=== PATIENT | female | born 1995 | race Caucasian/White ===

== ENCOUNTER 2016-08-07 14:29 | Inpatient (IN) | payer MEDICAID, OTHER ==
[2016-08-07] MEDS ORDERED: ZIPRASIDONE 20 MG VIAL IM PRN (15:06)
[2016-08-07] MEDS ORDERED: MAGNESIUM HYDROXIDE 2,400 MG/10 ML CUP PO PRN (15:06)
[2016-08-07] MEDS ORDERED: MAG HYDROX/AL HYDROX/SIMETH 30 ML CUP PO PRN (15:06)
[2016-08-07] MEDS ORDERED: LORazepam 2 MG/ML SYRINGE IM PRN (15:08)
[2016-08-07] MEDS: LORazepam 1 MG TAB PO PRN (18:05)
[2016-08-07] MEDS: ACETAMINOPHEN TAB 325 MG TAB PO PRN (18:05)
[2016-08-07 18:48] VITALS: BMI 23.7
[2016-08-07] MEDS ORDERED: QUEtiapine 50 MG TAB PO STA (22:04)
[2016-08-08] MEDS: NICOTINE 14MG/24HR PATCH TRANSDERM SCH (08:26)
[2016-08-08] MEDS: ACETAMINOPHEN TAB 325 MG TAB PO PRN ×2 (08:27→15:35)
[2016-08-08] MEDS: LORazepam 1 MG TAB PO PRN ×3 (08:28→23:10)
--- NOTE | 2016-08-08 13:29 | P.HP ---
Psychiatric H&P - . H&P Date: 08/08/16 History & Physical: IDENTIFYING DATA: She is a 21-year-old single female transferred from [facility] where she was admitted following an intentional overdose of an voyd-hmv-guqusle medication. HISTORY OF PRESENT ILLNESS: She is a poor historian and provided little information. She repeated throughout the interview that she is not suicidal, the overdose was a mistake and wishes to go home. She was admitted to [facility] via EMS on 08/04/2016. According to the medical record from [facility] she told the EMS personnel that she was suicidal and that she had overdose with "mucous medication." An alcohol odor was noted by nursing staff on admission. Her urine drug screen was positive for cannabinoids, cocaine, methamphetamine, amphetamine and benzodiazepines. Her ethanol level was 45 MG/DL. Her acetaminophen level was less than 10. Physician noted that she appeared lethargic and poorly responsive with diminished gag reflex. She was admitted to the ICU due to concerns over respiratory depression due to the multiple drug use and overdose of unspecified medications. She stated that she took an overdose of a "mucous medication" because she was distressed over conflict with her parents and her closest friend. She stated that she was arguing with her mother because she been away from home for 2 weeks and her mother was concerned about her use of drugs. She stated she lived with various friends over a two-week period. She was also arguing with her best friend because her best friend was concerned about her use of drugs. She minimizes her drug use alleging that she smoked some pot, used some cocaine, took some ADHD medications and some benzos. She denied that she took methamphetamine. Likewise, she minimized her alcohol use alleging that she drank "some". She denied feelings of depression, hopelessness, helplessness or worthlessness. She denied current suicidal thoughts, ideation or intent. She she regrets the overdose because her action traumatized her mother and her best friend. She denied feeling persistently depressed or having contemplated suicide prior to the overdose. She denied feeling persistently tense, nervous or anxious. She denied persistent irritability or a persistent elevation in mood. She denied psychotic symptoms such as auditory or visual hallucinations, ideas reference, thought insertion, thought broadcasting or thought control. PAST PSYCHIATRIC HISTORY: Her only psychiatric hospitalization was to this unit in July 2014. She presented with acute suicidal ideation with a plan of jumping into [place]. The stressor appears to have been the suicide of a close friend. Her action was purportedly thwarted by a concerned friend. Her discharge diagnoses included major depressive disorder recurrent, generalized anxiety disorder and a possible developmental disability. Her discharge medication included Prozac 20 mg daily and she was [facility] for [facility] mental health treatment. She stated that she meant with a counselor "for a period time" but left counseling "about a year and half ago." She has not received mental health services since she left [facility]. PAST MEDICAL HISTORY: According to record, she has history of asthma.. ALLERGIES: NO KNOWN DRUG ALLERGIES. SUBSTANCE USE HISTORY: She was evasive about the amount and frequency of her substance use. The medical record notes a history of benzodiazepine abuse. She talked about using "some" and "occasional" drugs and alcohol but she denied that this concern or has caused her problems. I suspect that her use of alcohol and drugs is more significant than she presented and is likely the primary precipitant for the reported overdose. FAMILY PSYCHIATRIC/SUBSTANCE USE HISTORY: Reportedly according to record her grandmother's brother by suicide. LEGAL HISTORY: And she is not on probation, parole or has pending charges. According to the [facility] court docket she was charged with assault and battery in June 2016, disorderly person/loitering about illegal business in June 2015, call purchase/consumption/possession by a minor second offense in April 2015. SOCIAL HISTORY: She was born in [place] and raised intact family. She has 2 brothers and 3 sisters. She left school in 11th grade. She did not receive a GED. She was suspended in school for truancy. It appears that she left school because she had difficulty with learning. She is single and has no children. She is unemployed and has no stable income. She is supported by her family. MENTAL STATUS EXAM: She presented as a disheveled 21-year-old female who looked younger than her stated age. She made eye contact and attended to the interview. Her hair was dyed pink. She had no prominent physical abnormalities. She had a blunted facial expression. She was alert and oriented to person, place and time. She showed psychomotor retardation but no abnormal involuntary movements. Her gait was slow but steady. Her speech was spontaneous with decreased rate, rhythm and volume. She had no articulation difficulties. Her affect was blunted but stable and appropriate. She denied suicidal ideation or wishes. She denied homicidal ideation. She denied depressive cognitions such as hopelessness, helplessness or worthlessness. She did not express phobias, ideas of reference, paranoid ideation. She delusional thoughts. Her thinking was concrete but her associations were coherent and logical. She did not demonstrate clang associations, perseveration, neologisms or blocking. She denied hallucinations and did not appear to be responding to internal stimuli. Global impression of intellect is average to below. She has limited awareness of her illness and need for treatment. STRENGTHS: Supportive family, stable housing, supportive friends. WEAKNESSES: Lack of employment, substance use problems, poor problem-solving skills, emotional immaturity IMPRESSION: She is a 21-year-old single female readmitted to the psychiatric unit following a overdose of a "mucous medication" (possibly Mucinex ). The overdose occurred in contacts of abuse of several drugs including marijuana, cocaine, amphetamines, methamphetamine, benzodiazepines and alcohol. She left home 2 weeks prior to overdose and has been arguing with her family over her absence and drug use and with friends over her drug use. She minimizes the severity of her drug and alcohol use and the severity of her suicide attempt. She should be treated on an inpatient basis due to the severity of the overdose. PRINCIPLE DIAGNOSIS: Intentional overdose of Mucinex, cocaine use disorder, methamphetamine use disorder, amphetamine use disorder, benzodiazepines use disorder, cannabinoid use disorder rule out alcohol use disorder, rule out a depressive disorder, possible learning disorder RECOMMENDATION: Continue inpatient psychiatric hospitalization. Obtain collateral information from family and discuss a referral for substance abuse treatment. Monitor for signs and symptoms of withdrawal. Encourage participation in therapeutic groups and activities. Evaluate clinical status response to treatment daily basis. Allergies Allergy/AdvReac Type Severity Reaction Status Date / Time No Known Allergies Allergy Verified 08/07/16 18:00 Vital Signs Temp 97.7 F 08/08/16 06:30 Pulse 71 08/08/16 06:30 Resp 16 08/08/16 06:30 BP 89/55 08/08/16 06:30 Pulse Ox 95 08/07/16 18:12 Intake & Output 08/07/16 08/08/16 08/08/16 18:59 06:59 18:59 Weight 58.8 kg 08/08/16 07:49 08/08/16 10:05 08/08/16 13:22
[2016-08-08] MEDS: METOPROLOL TARTRATE 25 MG TAB PO SCH (21:33)
--- NOTE | 2016-08-08 22:33 | P.HPIM ---
History of Present Illness H&P Date: 08/08/16 Chief Complaint: Suicide/depression. This is a history and physical an 21-year-old white female who was transferred from [facility] secondary to multiple drug overdose with legal and illegal substances including cocaine. She was medically stabilized over the weekend and because of her admitted suicide and history of depression and psychosocial stress, she was transferred to mental health unit yesterday. She states significant pressure/. Pressure and lack of support from her "friends." Her mother has tried to separate her from this clinic of people. However, over the last several weeks she's had struggles and ended up using illicit substances. She states she hopes that she improves her mental state. Review of Systems Constitutional: Denies chills, Denies fever Ears, nose, mouth and throat: Denies headache, Denies sore throat Respiratory: Denies cough Gastrointestinal: Reports as per HPI Psychiatric: Reports hopelessness, Reports mood swings, Reports sadness/ tearfulness Past Medical History Past Medical History: Asthma Additional Past Medical History / Comment(s): head injury -2013 History of Any Multi-Drug Resistant Organisms: None Reported Past Surgical History: No Surgical Hx Reported Past Anesthesia/Blood Transfusion Reactions: No Reported Reaction Past Psychological History: Anxiety, Bipolar, Depression, Panic Disorder Smoking Status: Current every day smoker Past Alcohol Use History: None Reported Past Drug Use History: Marijuana - Past Family History Mother Family Medical History: GERD/Reflux Medications and Allergies Home Medications Medication Instructions Recorded Confirmed Type Albuterol Inhaler [Ventolin Hfa 2 puff INHALATION RT-Q4H PRN 08/07/16 08/07/16 History Inhaler] Allergies Allergy/AdvReac Type Severity Reaction Status Date / Time No Known Allergies Allergy Verified 08/07/16 18:00 Physical Exam Vitals: Vital Signs Temp Pulse Resp BP Pulse Ox 08/08/16 06:30 97.7 F 71 16 89/55 08/07/16 18:12 98.3 F 90 18 112/61 95 Intake and Output 08/07/16 08/08/16 08/08/16 22:59 06:59 14:59 Other: Weight 58.8 kg - Constitutional General appearance: no acute distress - EENT Eyes: EOMI - Neck Neck: no lymphadenopathy - Respiratory Respiratory: bilateral: CTA - Cardiovascular Rhythm: regular Heart sounds: normal: S1, S2 - Gastrointestinal General gastrointestinal: soft - Neurologic Neurologic: CNII-XII intact, focal deficits Thrombosis Risk Factor Assmnt - Choose All That Apply Any of the Below Risk Factors Present?: Yes Other Risk Factors: No Assessment and Plan (1) Suicidal ideation Status: Acute Plan: Continue psychotherapy one-on-one and group therapy. Asthma is stable at this time. If worsening breathing, consider nebulized treatments. We'll continue to follow as necessary.
[2016-08-09 06:31] VITALS: TEMP 97.5
[2016-08-09 08:26] VITALS: RESP 16
[2016-08-09] MEDS: NICOTINE 14MG/24HR PATCH TRANSDERM SCH (10:01)
[2016-08-09] MEDS: METOPROLOL TARTRATE 25 MG TAB PO SCH ×2 (10:01→12:20)
--- NOTE | 2016-08-09 11:37 | P.DS ---
Providers Date of admission: 08/07/16 16:48 Attending physician: Wisam Pastor MD Consults: 08/07/16 15:06 Consult Physician Routine Consulting Provider: Gabriel Pizano Consult Reason/Comments: follow up H & P Do you want consulting provider notified?: Yes Primary care physician: Gabriel Pizano - Discharge Diagnosis(es) (1) Suicide attempt by substance overdose Current Visit: Yes Status: Acute Priority: Medium (2) Methamphetamine use disorder, mild Current Visit: Yes Status: Chronic Priority: Medium (3) Amphetamine use disorder, moderate Current Visit: Yes Status: Chronic Priority: Medium (4) Moderate benzodiazepine use disorder Current Visit: Yes Status: Chronic Priority: Medium (5) Cannabis use disorder, mild, abuse Current Visit: Yes Status: Chronic Priority: Medium (6) Adjustment disorder with mixed disturbance of emotions and conduct Current Visit: Yes Status: Resolved Priority: High Hospital Course: She is a 21-year-old single female transferred from [facility] where she was admitted following an intentional overdose of an eoii-joa-cxmtebh medication. She is a poor historian and provided little information. She repeated throughout the interview that she is not suicidal, the overdose was a mistake and wishes to go home. She was admitted to [facility] via EMS on 08/04/2016. According to the medical record from [facility] she told the EMS personnel that she was suicidal and that she had overdose with "mucous medication." An alcohol odor was noted by nursing staff on admission. Her urine drug screen was positive for cannabinoids, cocaine, methamphetamine, amphetamine and benzodiazepines. Her ethanol level was 45 MG/DL. Her acetaminophen level was less than 10. Physician noted that she appeared lethargic and poorly responsive with diminished gag reflex. She was admitted to the ICU due to concerns over respiratory depression due to the multiple drug use and overdose of unspecified medications. She stated that she took an overdose of a "mucous medication" because she was distressed over conflict with her parents and her closest friend. She stated that she was arguing with her mother because she been away from home for 2 weeks and her mother was concerned about her use of drugs. She stated she lived with various friends over a two-week period. She was also arguing with her best friend because her best friend was concerned about her use of drugs. She minimizes her drug use alleging that she smoked some pot, used some cocaine, took some ADHD medications and some benzos. She denied that she took methamphetamine. Likewise, she minimized her alcohol use alleging that she drank "some". She denied feelings of depression, hopelessness, helplessness or worthlessness. She denied current suicidal thoughts, ideation or intent. She she regrets the overdose because her action traumatized her mother and her best friend. She denied feeling persistently depressed or having contemplated suicide prior to the overdose. She denied feeling persistently tense, nervous or anxious. She denied persistent irritability or a persistent elevation in mood. She denied psychotic symptoms such as auditory or visual hallucinations, ideas reference, thought insertion, thought broadcasting or thought control. Her only psychiatric hospitalization was to this unit in July 2014. She presented with acute suicidal ideation with a plan of jumping into [facility]. The stressor appears to have been the suicide of a close friend. Her action was purportedly thwarted by a concerned friend. Her discharge diagnoses included major depressive disorder recurrent, generalized anxiety disorder and a possible developmental disability. Her discharge medication included Prozac 20 mg daily and she was referred to [facility] for continued mental health treatment. She stated that she meant with a counselor "for a period time" but left counseling "about a year and half ago." She has not received mental health services since she left [facility]. She was evasive about the amount and frequency of her substance use. The medical record notes a history of benzodiazepine abuse. She talked about using "some" and "occasional" drugs and alcohol but she denied that this concern or has caused her problems. I suspect that her use of alcohol and drugs is more significant than she presented and is likely the primary precipitant for the reported overdose. We admitted her to the psychiatric unit under the care of this pattern chart writer. We provided a biopsychosocial assessment. The medical social consultant completed initial physical exam and medical history and diagnosed asthma. She took the overdose because she was "hanging with the wrong crowd" and using drugs. She complained that these friends were critical and demeaning towards her. After speaking with her mother she decided to have no further contact with them. She denied suicidal ideation or wishes. She regrets the overdose because she understands the trauma and distress she caused her family and her friends. She declined recommendation for referral to a substance abuse treatment program. However, she agreed to referral to [facility] for continued mental health and/or substance abuse treatment. There were no indications during this brief hospitalization for the prescription of psychotropic medication. At time of discharge she denied feeling depressed or having thoughts of or suicide. She denied psychotic symptoms. Her affect was bright and her thinking was organized, coherent and goal directed. Patient Condition at Discharge: Stable Plan - Discharge Summary New Discharge Prescriptions: Metoprolol Tartrate [Lopressor] 25 mg PO DAILY #30 tab Nicotine 14Mg/24Hr Patch [Habitrol] 1 patch TRANSDERM DAILY #14 patch Discharge Medication List Albuterol Inhaler [Ventolin Hfa Inhaler] 2 puff INHALATION RT-Q4H PRN 08/07/16 [ History] Metoprolol Tartrate [Lopressor] 25 mg PO DAILY #30 tab 08/09/16 [Rx] Nicotine 14Mg/24Hr Patch [Habitrol] 1 patch TRANSDERM DAILY #14 patch 08/09/16 [ Rx] Discharge Disposition: HOME SELF-CARE
[2016-08-09 12:12] VITALS: BP 117/75; PULSE 97
[2016-08-09] MEDS: LORazepam 1 MG TAB PO PRN (12:20)
== END 2016-08-09 13:00 | disposition home or self-care (01) | DRG 897 ==
LOC: 3MHU 16:48
PROVIDERS: ADMIT Psychiatry & Neurology Psychiatry; ATTEND Psychiatry & Neurology Psychiatry
DX: F15.20 Other stimulant dependence, uncomplicated (principal); F14.90 Cocaine use, unspecified, uncomplicated; F12.90 Cannabis use, unspecified, uncomplicated; F43.25 Adjustment disorder with mixed disturbance of emotions and conduct; J45.909 Unspecified asthma, uncomplicated; F90.9 Attention-deficit hyperactivity disorder, unspecified type; F17.200 Nicotine dependence, unspecified, uncomplicated; F41.0 Panic disorder [episodic paroxysmal anxiety]; F19.90 Other psychoactive substance use, unspecified, uncomplicated; Z72.89 Other problems related to lifestyle; Z91.5 Personal history of self-harm; Z79.899 Other long term (current) drug therapy
CPT/HCPCS: 84443; 93005

== ENCOUNTER → 2017-04-05 | Outpatient (CLI) | payer OTHER ==
[2017-04-05 13:50] LABS: CH 32.7; CHCM 35.8; HCT 39.6 % (34.0-46.0); HDW 2.66; MCH 32.3 pg (25.0-35.0); MCHC 35.2 g/dL (31.0-37.0); MCV 91.8 fL (80.0-100.0); Mean Platelet Volume 7.3; RBC 4.32 m/uL (3.80-5.40); RDW 12.2 % (11.5-15.5)
--- NOTE | 2017-04-05 14:14 | US ---
EXAMINATION TYPE: US OB <= 14 wk fetus DATE OF EXAM: 04/05/2017 COMPARISON: NONE CLINICAL HISTORY: Z36 Confirm dates. early OB, cramping EXAM PERFORMED: TA EXAM MEASUREMENTS: GESTATIONAL AGE / DATING Physician Established: (10 weeks/4 days) EDC: 10/28/2017 Dates by LMP: (10 weeks/4 days) EDC: 10/28/2017 Dates by First Scan: No previous this is first scan Dates by Current Scan for: (9 weeks/2 days) EDC: 11/06/2017 MATERNAL ANATOMY Uterus: 9.9 x 8.2 x 7.2cm Right Ovary: 2.7 x 1.6 x 1.3cm Left Ovary: 2.7 x 2.0 x 1.8cm Post CDS / Adnexa: wnl Presence of free fluid: no Presence of corpus luteal cyst: not seen Presence of subchorionic bleed: no GESTATION / SURVEY CRL: 2.6 (9 weeks/2 days) MSD: wnl Yolk Sac (normal less than 6mm): 0.3cm Heart Rate: 173 bpm Rhythm: Normal IUP: Viable IUP Date of LMP: 01/21/2017 Beta HcG (if available): pending IMPRESSION: 1. Single intrauterine gestation estimated at 9 weeks 2 days gestation based on current ultrasound me asurements. This would have a calculated EDC of 11/06/2017 based on the current ultrasound measurement s. Correlate this with her physician established EDC. 2. Cardiac activity measures 173 bpm.
[2017-04-05 14:23] LABS: Glucose 66 mg/dL (74-99); Non-African American GFR(MDRD) >60 (>60 ml/min/1.73 sqM)
[2017-04-05 19:51] LABS: Treponemal Ab Non-Reactive (Non-Reactive)
== END ==
LOC: RADUSWWP 12:18
PROVIDERS: ATTEND Obstetrics & Gynecology
DX: Z36.9 Encounter for antenatal screening, unspecified (principal); O26.811 Pregnancy related exhaustion and fatigue, first trimester; Z3A.09 9 weeks gestation of pregnancy
CPT/HCPCS: 36415; 76801; 82565; 82947; 85027; 86762; 86777; 86778; 86780; 86850; 86900; 86901; 87340; 87390

== ENCOUNTER 2017-08-18 19:34 | Emergency (ER) | payer OTHER ==
[2017-08-18] MEDS ORDERED: PENICILLIN V POTASSIUM 250 MG TAB PO STA (20:18)
[2017-08-18 20:20] VITALS: BP 127/79; PULSE 121; RESP 17; TEMP 98.5
--- NOTE | 2017-08-18 20:25 | ED ---
ENT HPI - General Chief complaint: Dental/Oral Stated complaint: Dental pain Time Seen by Provider: 08/18/17 19:50 Source: patient, RN notes reviewed Mode of arrival: ambulatory Limitations: no limitations - History of Present Illness Initial comments: This is a 22-year-old female who presents to the emergency department with chief complaint of toothache. Patient states that she fractured her right upper wisdom tooth a few months ago and has been experiencing pain for the last couple of weeks. She states she has been applying Orajel. Patient does admit to being in her third trimester of . Denies any drainage from the tooth. Denies any radiation of pain to the jaw or neck. Denies fevers or chills, chest pain shortness of breath, abdominal pain, nausea or vomiting. She does admit to constipation. - Related Data Home Medications Medication Instructions Recorded Confirmed Albuterol Inhaler [Ventolin Hfa 2 puff INHALATION RT-Q4H PRN 08/07/16 08/07/16 Inhaler] Previous Rx's Medication Instructions Recorded Metoprolol Tartrate [Lopressor] 25 mg PO DAILY #30 tab 08/09/16 Nicotine 14Mg/24Hr Patch [Habitrol] 1 patch TRANSDERM DAILY #14 patch 08/09/16 Penicillin V Potassium [Pen Vee K] 500 mg PO QID 10 Days tab 08/18/17 Allergies Allergy/AdvReac Type Severity Reaction Status Date / Time No Known Allergies Allergy Verified 08/18/17 19:49 Review of Systems ROS Statement: Those systems with pertinent positive or pertinent negative responses have been documented in the HPI. ROS Other: All systems not noted in ROS Statement are negative. Past Medical History Past Medical History: Asthma Additional Past Medical History / Comment(s): head injury -2014 History of Any Multi-Drug Resistant Organisms: None Reported Past Surgical History: No Surgical Hx Reported Past Anesthesia/Blood Transfusion Reactions: No Reported Reaction Past Psychological History: Anxiety, Bipolar, Depression, Panic Disorder Smoking Status: Current every day smoker Past Alcohol Use History: None Reported Past Drug Use History: Marijuana - Past Family History Mother Family Medical History: GERD/Reflux General Exam - General Exam Comments Initial Comments: General: Awake and alert, well-developed; in no apparent distress. HEENT: Head atraumatic, normocephalic. Pupils are equal, round and reactive to light. Extraocular movements intact. Oropharynx moist without erythema or exudate. Tooth #1 is fractured. No masses or areas of fluctuance noted on palpation of the gumline. No active drainage. Neck: Supple. Normal ROM. Cardiovascular: Regular rate and rhythm. No murmurs, rubs or gallops. Chest symmetrical. Respiratory: Lungs clear to auscultation bilaterally. No wheezes, rales or rhonchi. Normal respiratory effort with no use of accessory muscles. Musculoskeletal: Normal ROM, no tenderness bilateral upper and lower extremities. Ambulating normally. Skin: Earth, warm and dry without rashes or lesions. Neurological: Alert and oriented x3. CN II-XII grossly intact. Speech is fluent and answers are appropriate. No focal neuro deficits. Psychiatric: Normal mood and affect. No overt signs of depression or anxiety noted. Limitations: no limitations Course Vital Signs 08/18/17 19:46 Temperature 98.8 F Pulse Rate 132 H Respiratory 20 Rate Blood Pressure 124/76 O2 Sat by Pulse 96 Oximetry Medical Decision Making - Medical Decision Making This is a 22-year-old female who presents to the emergency department with chief complaint of toothache. Patient has a fractured right upper wisdom tooth with no abscesses noted on examination. On presentation, patient's vital signs are stable however she does have an increased heart rate. Patient states that she always has an increased heart rate as she is an anxious person and this is not out of the ordinary for her. Initially heart rate was 132, however on recheck it was down to 118. Patient denies any other symptoms except for tooth pain and constipation. No fevers or chills, shortness breath or chest pain, abdominal pain, nausea or vomiting, vaginal bleeding. Recommended increasing her fluid intake. This case was discussed with attending physician, Dr. Higginbotham. Patient will be started on penicillin VK. Also recommended following up with her dentist. Patient is in no acute distress and will be discharged home at this time. She is in agreement with plan and voices understanding. All questions were answered. Disposition Clinical Impression: Toothache Disposition: HOME SELF-CARE Condition: Good Instructions: Toothache (ED) Additional Instructions: Please take medications as prescribed. Please follow up with your dentist. Please follow up with primary care provider within 1-2 days. Return to emergency department if symptoms should worsen or any concerns arise. Prescriptions: Penicillin V Potassium [Pen Vee K] 500 mg PO QID 10 Days tab Is patient prescribed a controlled substance at d/c from ED?: No Referrals: Gabriel Pizano MD [Primary Care Provider] - 1-2 days Time of Disposition: 20:24
== END 2017-08-18 20:43 | disposition home or self-care (01) ==
LOC: EC 19:34
DX: O99.613 Diseases of the digestive system complicating pregnancy, third trimester (principal); K08.89 Other specified disorders of teeth and supporting structures; K59.00 Constipation, unspecified; O99.513 Diseases of the respiratory system complicating pregnancy, third trimester; J45.909 Unspecified asthma, uncomplicated; O99.343 Other mental disorders complicating pregnancy, third trimester; F41.9 Anxiety disorder, unspecified; O99.333 Smoking (tobacco) complicating pregnancy, third trimester; F17.200 Nicotine dependence, unspecified, uncomplicated; Z3A.00 Weeks of gestation of pregnancy not specified
CPT/HCPCS: 99282

== ENCOUNTER 2018-02-05 00:03 | Emergency (ER) | payer OTHER ==
[2018-02-05 00:08] VITALS: TEMP 98.6
[2018-02-05] MEDS ORDERED: SODIUM CHLORIDE 0.9% 1,000 ML IV STA ×2 (00:32)
--- NOTE | 2018-02-05 00:35 | ED ---
Chest Pain HPI - General Source: patient, RN notes reviewed, old records reviewed Mode of arrival: ambulatory Limitations: no limitations <Marina Moura - Last Filed: 02/05/18 02:30> <Shabana Cook - Last Filed: 02/05/18 04:23> - General Chief Complaint: Chest Pain Stated Complaint: Chest Pain Time Seen by Provider: 02/05/18 00:13 - History of Present Illness Initial Comments: Patient is a 23-year-old female who presents emergency department today with chief complaint of chest pain intermittent shortness of breath for the past week. She reports she's had history of tachycardia, was previously on metoprolol per her PCP. She reports she's not been taking this medication for quite some time. Patient states she feels like her heart is racing. She states she has had no nausea or vomiting or abdominal pain. She reports occasional headache. Patient states that she has never seen a oncology social work in the past. She reports a family history of blood disorders. No previous history of blood clots for herself. She denies any back or her rib pain. She reports that her chest pain feels like a squeezing sensation around her heart. Patient denies any recent fever, chills, shortness of breath, back pain, abdominal pain, nausea vomiting, numbness or tingling, dysuria or hematuria, constipation or diarrhea, headaches or visual changes, or any other current symptoms (Marina Moura) - Related Data Home Medications Medication Instructions Recorded Confirmed Albuterol Inhaler [Ventolin Hfa 2 puff INHALATION RT-Q4H PRN 08/07/16 08/07/16 Inhaler] Previous Rx's Medication Instructions Recorded Metoprolol Tartrate [Lopressor] 25 mg PO DAILY #30 tab 08/09/16 Nicotine 14Mg/24Hr Patch [Habitrol] 1 patch TRANSDERM DAILY #14 patch 08/09/16 Penicillin V Potassium [Pen Vee K] 500 mg PO QID 10 Days tab 08/18/17 Famotidine [Pepcid] 20 mg PO BID #20 tablet 02/05/18 Allergies Allergy/AdvReac Type Severity Reaction Status Date / Time No Known Allergies Allergy Verified 02/05/18 00:07 Review of Systems ROS Other: All systems not noted in ROS Statement are negative. <Marina Moura - Last Filed: 02/05/18 02:30> ROS Other: All systems not noted in ROS Statement are negative. <Shabana Cook Brandee - Last Filed: 02/05/18 04:23> ROS Statement: Those systems with pertinent positive or pertinent negative responses have been documented in the HPI. EKG Findings - EKG Comments: EKG Findings:: EKG performed at 0 15 shows sinus tachycardia, regular rate of 112 bpm. OH interval is 164 ms. QRS duration 82 ms. QT QTc is 328/447 ms. <Marina Moura - Last Filed: 02/05/18 02:30> Past Medical History Past Medical History: Asthma Additional Past Medical History / Comment(s): head injury -2013 History of Any Multi-Drug Resistant Organisms: None Reported Past Surgical History: No Surgical Hx Reported Past Anesthesia/Blood Transfusion Reactions: No Reported Reaction Past Psychological History: Anxiety, Bipolar, Depression, Panic Disorder Smoking Status: Current every day smoker Past Alcohol Use History: Occasional Past Drug Use History: Marijuana - Past Family History Mother Family Medical History: GERD/Reflux <Marina Moura - Last Filed: 02/05/18 02:30> General Exam Limitations: no limitations General appearance: alert, in no apparent distress Head exam: Present: atraumatic, normocephalic, normal inspection Eye exam: Present: normal appearance, PERRL, EOMI. Absent: scleral icterus, conjunctival injection, periorbital swelling ENT exam: Present: normal exam, mucous membranes moist Neck exam: Present: normal inspection. Absent: tenderness, meningismus, lymphadenopathy Respiratory exam: Present: normal lung sounds bilaterally. Absent: respiratory distress, wheezes, rales, rhonchi, stridor Cardiovascular Exam: Present: regular rate, normal rhythm, normal heart sounds. Absent: systolic murmur, diastolic murmur, rubs, gallop, clicks GI/Abdominal exam: Present: soft, normal bowel sounds. Absent: distended, guarding, rebound, rigid Extremities exam: Present: normal inspection, full ROM, normal capillary refill. Absent: tenderness, pedal edema, joint swelling, calf tenderness Back exam: Present: normal inspection Neurological exam: Present: alert, oriented X3, CN II-XII intact Psychiatric exam: Present: normal affect Skin exam: Present: warm, dry, intact, normal color. Absent: rash <Marina Moura - Last Filed: 02/05/18 02:30> <Shabana Cook P - Last Filed: 02/05/18 04:23> - General Exam Comments Initial Comments: Well-appearing 23-year-old female. Alert and oriented 3. Patient appears in no acute distress. (Marina Moura) Vital Signs 02/05/18 02/05/18 02/05/18 00:06 00:30 01:30 Temperature 98.6 F Pulse Rate 130 H 99 92 Respiratory 16 18 18 Rate Blood Pressure 135/91 135/88 135/88 O2 Sat by Pulse 100 97 96 Oximetry 02/05/18 02:00 Temperature Pulse Rate 87 Respiratory 16 Rate Blood Pressure 114/77 O2 Sat by Pulse 97 Oximetry Chest Pain MDM <Marina Moura - Last Filed: 02/05/18 02:30> <Shabana Cook - Last Filed: 02/05/18 04:23> - MDM 23-year-old female presents for service today with 1 week of chest pain complaining of tachycardia and shortness of breath. Patient's EKG to the edition normal sinus rhythm with ventricular rate 112 bpm. No other acute changes noted. An IV fluids, heart rate did come down. Troponin, d-dimer and the other lab work is reviewed and negative. Negative hCG. Patient later relates that her symptoms seem to be from gastritis and acid reflux. Discussed that this could contribute to some discomfort and we'll start the Patient on Pepcid and have her follow-up with GI. I discussed unlikely related cardiac at this time with normal troponin and EKG after 1 week of symptoms. Patient has been advised of also follow-up with primary care physician. Discussed return parameters. (Marina Moura) I was available for consultation in the emergency department. The history and physical exam were done by the midlevel provider. I was consulted for this patient's care. I reviewed the case with the midlevel provider and based on their presentation of the patient, I agree with the assessment, medical decision making and plan of care as documented. (Shabana Cook) Disposition Is patient prescribed a controlled substance at d/c from ED?: No Time of Disposition: 02:33 <Marina Moura - Last Filed: 02/05/18 02:30> <Shabana Cook - Last Filed: 02/05/18 04:23> Clinical Impression: Atypical chest pain, Gastritis Disposition: HOME SELF-CARE Condition: Stable Instructions: Diet for Stomach Ulcers and Gastritis (ED) Additional Instructions: Patient advised to follow-up with primary care physician. Follow-up with GI specialist. Take the medication as prescribed. Return to emergency department if any alarming signs or symptoms occur. Prescriptions: Famotidine [Pepcid] 20 mg PO BID #20 tablet Referrals: None,Stated [Primary Care Provider] - 1-2 days Alyce Thibodeaux MD [STAFF PHYSICIAN] - 1-2 days
[2018-02-05 01:11] LABS: Basophils % (A) 0 %; Eosinophils # (A) 0.1 k/uL (0-0.7); Eosinophils % (A) 2 %; HCT 42.9 % (34.0-46.0); HGB 14.9 gm/dL (11.4-16.0); Lymphocytes # (A) 2.2 k/uL (1.0-4.8); Lymphocytes % (A) 29 %; MCH 31.1 pg (25.0-35.0); MCHC 34.7 g/dL (31.0-37.0); MCV 89.4 fL (80.0-100.0); Mean Platelet Volume 7.5; Monocytes # (A) 0.4 k/uL (0-1.0); Monocytes % (A) 6 %; Neutrophils # (A) 4.8 k/uL (1.3-7.7); Neutrophils % (A) 63 %; Platelet Count 235 k/uL (150-450); RDW 12.7 % (11.5-15.5); WBC 7.6 k/uL (3.8-10.6)
[2018-02-05 01:16] LABS: Appearance,Urine Cloudy (Clear); Bilirubin,Urine Negative (Negative); Blood,Urine Negative (Negative); Color,Urine Yellow; Glucose,Urine (UA) Negative (Negative); Ketones,Urine Negative (Negative); Leukocyte Esterase,Urine Trace (Negative); Mucus,Urine Rare /hpf; Nitrite,Urine Negative (Negative); PH, Urine 6.5 (5.0-8.0); Protein,Urine Negative (Negative); Specific Gravity,Urine 1.023 (1.001-1.035); Squamous Epithelial Cell,Urine 10 /hpf (0-4); WBC,Urine 2 /hpf (0-5)
[2018-02-05 01:24] LABS: ALT 39 U/L (9-52); AST 25 U/L (14-36); Albumin 4.3 g/dL (3.5-5.0); Alkaline Phosphatase 120 U/L (38-126); Amylase 34 U/L (30-110); Anion Gap 9 mmol/L; Blood Urea Nitrogen 18 mg/dL (7-17); Calcium 9.9 mg/dL (8.4-10.2); Carbon Dioxide 23 mmol/L (22-30); Chloride 107 mmol/L (98-107); Glucose 102 mg/dL (74-99); Lipase 48 U/L (23-300); Magnesium 1.7 mg/dL (1.6-2.3); Potassium 4.1 mmol/L (3.5-5.1); Sodium 139 mmol/L (137-145); Total Bilirubin 0.4 mg/dL (0.2-1.3); Total Protein 7.1 g/dL (6.3-8.2)
[2018-02-05 01:26] LABS: D-Dimer 0.33 mg/L FEU (<0.60); INR 1.1 (<1.2); Partial Thromboplastin Time 22.1 sec (22.0-30.0); Prothrombin Time 10.3 sec (9.0-12.0)
[2018-02-05 01:29] LABS: Amphetamine Screen,Urine Not Detected (NotDetected); Barbiturate Screen,Urine Not Detected (NotDetected); Benzodiazepines Screen,Urine Detected (NotDetected); Cocaine Screen,Urine Not Detected (NotDetected); Methadone Screen, Urine Not Detected (NotDetected); Opiate Screen,Urine Not Detected (NotDetected); Oxycodone Screen, Urine Not Detected (NotDetected); Phencyclidine Screen,Urine Not Detected (NotDetected); Tricyclic Antidepressant,Urine Not Detected (NotDetected); Urn Cannabinoid Scrn Not Detected (NotDetected)
[2018-02-05 01:31] LABS: Creatine Kinase 42 U/L (30-135)
[2018-02-05 01:44] LABS: Creatine Kinase MB 0.3 ng/mL (0.0-2.4); Troponin I <0.012 ng/mL (0.000-0.034)
--- NOTE | 2018-02-05 02:05 | XR ---
EXAM: XR Chest, 2 Views CLINICAL HISTORY: ITS.REASON XR Reason: Chest Pain TECHNIQUE: Frontal and lateral views of the chest. COMPARISON: No relevant prior studies available. FINDINGS: Lungs: Unremarkable. No consolidation. Pleural space: Unremarkable. No pneumothorax. Heart: Unremarkable. No cardiomegaly. Mediastinum: Unremarkable. Bones/joints: Unremarkable. IMPRESSION: No acute radiographic findings.
[2018-02-05 02:28] VITALS: BP 114/77; PULSE 87; RESP 16
== END 2018-02-05 02:50 | disposition home or self-care (01) ==
LOC: EC 00:03
DX: K29.70 Gastritis, unspecified, without bleeding (principal); R07.89 Other chest pain; R06.02 Shortness of breath; R51 Headache; J45.909 Unspecified asthma, uncomplicated; F17.200 Nicotine dependence, unspecified, uncomplicated; Z83.79 Family history of other diseases of the digestive system
CPT/HCPCS: 36415; 71046; 80053; 80306; 81001; 81025; 82150; 82550; 82553; 83690; 83735; 84484; 85025; 85379; 85610; 85730; 93005; 96360; 96361; 99285

== ENCOUNTER 2018-07-10 18:39 | Emergency (ER) | payer OTHER ==
[2018-07-10 19:00] VITALS: RESP 18; TEMP 98.7
--- NOTE | 2018-07-10 19:35 | ED ---
General Adult HPI - General Chief complaint: Abdominal Pain Stated complaint: 7 wks preg/cramping Time Seen by Provider: 07/10/18 19:07 Source: patient Mode of arrival: ambulatory Limitations: no limitations - History of Present Illness Initial comments: Dictation was produced using [employer] dictation software. please excuse any grammatical, word or spelling errors. Chief Complaint: 23-year-old female in no serial past medical history presents with pelvic cramping. She is allegedly 7 weeks . History of Present Illness: Patient is a 23-year-old female she presents with bilateral lower quadrant abdominal pain over the last 2-3 days. She states that her symptoms have been progressively worse. Patient states that she is 7 weeks based on last menstrual period. She denies having ultrasound for this so far. Patient has a before. Denies any vaginal bleeding or vaginal discharge. Denies any dysuria. She does feel nauseated however no vomiting. The ROS documented in this emergency department record has been reviewed and confirmed by me. Those systems with pertinent positive or negative responses have been documented in the HPI. All other systems are other negative and/or noncontributory. PHYSICAL EXAM: General Impression: Alert and oriented x3, not in acute distress HEENT: Normocephalic atraumatic, extra-ocular movements intact, pupils equal and reactive to light bilaterally, mucous membranes moist. Cardiovascular: Heart regular rate and rhythm, S1&S2 audible, no murmurs, rubs or gallops Chest: Lungs clear to auscultation bilaterally, no rhonchi, no wheeze, no rales Abdomen: Bowel sounds present, abdomen soft, non-tender, non-distended, no organomegaly Musculoskeletal: Pulses present and equal in all extremities, no peripheral edema Motor: no focal deficits noted Neurological: CN II-XII grossly intact, no focal motor or sensory deficits noted Skin: Intact with no visualized rashes Psych: Normal affect and mood ED course: 23-year-old female presents with pelvic cramping and . Upon arrival are within acceptable limits. Examination is benign.Return evaluation obtained. Mild leukocytosis of 11.5 likely related to . Metabolic foreman el is unremarkable. The patient has glucose of 68. Patient given by mouth food. Urinalysis is unremarkable. ultrasound was obtained showing single live intrauterine with date of 7 weeks 3 days size. Patient observed in the emergency department for several hours with no changes in her medical status. Patient is well-appearing. Patient offered pelvic exam however she refused. I don't believe that of present illness entirely necessary on this visit given patient is well-appearing and has no bleeding or discharge. Patient told to continue taking prenatals. Advised follow-up with PRINCIPAL CLERK TYPIST. - Related Data Home Medications Medication Instructions Recorded Confirmed Ooy-Lmpc-Nutsn Acid 1 cap PO DAILY 07/10/18 07/10/18 [-U Capsule (formulary)] Allergies Allergy/AdvReac Type Severity Reaction Status Date / Time No Known Allergies Allergy Verified 07/10/18 20:10 Review of Systems ROS Statement: Those systems with pertinent positive or pertinent negative responses have been documented in the HPI. ROS Other: All systems not noted in ROS Statement are negative. Past Medical History Past Medical History: Asthma Additional Past Medical History / Comment(s): head injury -2013 History of Any Multi-Drug Resistant Organisms: None Reported Past Surgical History: No Surgical Hx Reported Past Anesthesia/Blood Transfusion Reactions: No Reported Reaction Past Psychological History: Anxiety, Bipolar, Depression, Panic Disorder Smoking Status: Current every day smoker Past Alcohol Use History: Occasional Past Drug Use History: Marijuana - Past Family History Mother Family Medical History: GERD/Reflux General Exam Limitations: no limitations Course Vital Signs 07/10/18 18:57 Temperature 98.7 F Pulse Rate 98 Respiratory 18 Rate Blood Pressure 119/78 O2 Sat by Pulse 100 Oximetry Medical Decision Making - Lab Data Result diagrams: 07/10/18 20:23 07/10/18 20:14 Lab Results 07/10/18 07/10/18 07/10/18 Range/Units 20:14 20:14 20:23 WBC 11.5 H (3.8-10.6) k/uL RBC 4.72 (3.80-5.40) m/uL Hgb 14.1 (11.4-16.0) gm/dL Hct 41.7 (34.0-46.0) % MCV 88.5 (80.0-100.0) fL MCH 30.0 (25.0-35.0) pg MCHC 33.9 (31.0-37.0) g/dL RDW 13.4 (11.5-15.5) % Plt Count 229 (150-450) k/uL Neutrophils % 69 % Lymphocytes % 23 % Monocytes % 4 % Eosinophils % 2 % Basophils % 0 % Neutrophils # 8.0 H (1.3-7.7) k/uL Lymphocytes # 2.7 (1.0-4.8) k/uL Monocytes # 0.5 (0-1.0) k/uL Eosinophils # 0.2 (0-0.7) k/uL Basophils # 0.0 (0-0.2) k/uL Sodium 138 (137-145) mmol/L Potassium 4.4 (3.5-5.1) mmol/L Chloride 108 H (98-107) mmol/L Carbon Dioxide 22 (22-30) mmol/L Anion Gap 8 mmol/L BUN 12 (7-17) mg/dL Creatinine 0.40 L (0.52-1.04) mg/dL Est GFR (CKD-EPI)AfAm >90 (>60 ml/min/1.73 sqM) Est GFR (CKD-EPI)NonAf >90 (>60 ml/min/1.73 sqM) Glucose 68 L (74-99) mg/dL Calcium 9.7 (8.4-10.2) mg/dL Urine Color Yellow Urine Appearance Clear (Clear) Urine pH 6.5 (5.0-8.0) Ur Specific [place] 1.029 (1.001-1.035) Urine Protein Negative (Negative) Urine Glucose (UA) Negative (Negative) Urine Ketones Negative (Negative) Urine Blood Negative (Negative) Urine Nitrite Negative (Negative) Urine Bilirubin Negative (Negative) Urine Urobilinogen <2.0 (<2.0) mg/dL Ur Leukocyte Esterase Negative (Negative) Disposition Clinical Impression: Pelvic pain affecting Disposition: HOME SELF-CARE Condition: Good Instructions (If sedation given, give patient instructions): Pelvic Pain in Women (ED) Is patient prescribed a controlled substance at d/c from ED?: No Referrals: None,Stated [Primary Care Provider] - 1-2 days Time of Disposition: 21:30
[2018-07-10 20:27] LABS: Appearance,Urine Clear (Clear); Bilirubin,Urine Negative (Negative); Blood,Urine Negative (Negative); Color,Urine Yellow; Glucose,Urine (UA) Negative (Negative); Ketones,Urine Negative (Negative); Leukocyte Esterase,Urine Negative (Negative); Nitrite,Urine Negative (Negative); PH, Urine 6.5 (5.0-8.0); Protein,Urine Negative (Negative); Specific Gravity,Urine 1.029 (1.001-1.035); Urobilinogen,Urine <2.0 mg/dL (<2.0)
--- NOTE | 2018-07-10 20:28 | US ---
EXAMINATION TYPE: Transabdominal DATE OF EXAM: 07/10/2018 8:10 PM COMPARISON: NONE CLINICAL HISTORY: Pain. Cramping. EXAM PERFORMED: Transabdominal (TA) EXAM MEASUREMENTS: GESTATIONAL AGE / DATING Physician Established: ( 7 weeks/3 days) EDC: 02/23/2019 Dates by LMP: (7 weeks/3 days) EDC: 02/23/2019 Dates by First Scan: No previous this is first scan Dates by Current Scan for: ( 7 weeks/3 days) EDC: MATERNAL ANATOMY Uterus: 10.7 x 6.0 x 7.9 cm Right Ovary: 2.3 x 1.7 x 1.6 cm Left Ovary: 1.9 x 1.3 x 1.7 cm Post CDS / Adnexa: wnl Presence of free fluid: no Presence of corpus luteal cyst: no Presence of subchorionic bleed: Yes 1.2 x 1.1 x 1.3cm. GESTATION / SURVEY CRL: 1.24 cm (7 weeks/3 days) Yolk Sac (normal less than 6mm): 3mm Heart Rate: 161 bpm Rhythm: Normal IUP: Viable IUP Beta HcG (if available): Not available at this time IMPRESSION: No complicating process seen.
[2018-07-10 20:35] LABS: Basophils % (A) 0 %; Eosinophils # (A) 0.2 k/uL (0-0.7); Eosinophils % (A) 2 %; HCT 41.7 % (34.0-46.0); HGB 14.1 gm/dL (11.4-16.0); Lymphocytes # (A) 2.7 k/uL (1.0-4.8); Lymphocytes % (A) 23 %; MCHC 33.9 g/dL (31.0-37.0); MCV 88.5 fL (80.0-100.0); Mean Platelet Volume 8.1; Monocytes # (A) 0.5 k/uL (0-1.0); Monocytes % (A) 4 %; Neutrophils % (A) 69 %; Platelet Count 229 k/uL (150-450); RBC 4.72 m/uL (3.80-5.40); RDW 13.4 % (11.5-15.5); WBC 11.5 k/uL (3.8-10.6)
[2018-07-10 20:37] LABS: Anion Gap 8 mmol/L; Blood Urea Nitrogen 12 mg/dL (7-17); Calcium 9.7 mg/dL (8.4-10.2); Carbon Dioxide 22 mmol/L (22-30); Chloride 108 mmol/L (98-107); Glucose 68 mg/dL (74-99); Potassium 4.4 mmol/L (3.5-5.1); Sodium 138 mmol/L (137-145)
[2018-07-10 21:51] LABS: HCG,Quantitative Serum 83222.9 mIU/mL
[2018-07-10 21:56] VITALS: BP 125/81; PULSE 90
== END 2018-07-10 21:55 | disposition home or self-care (01) ==
LOC: EC 18:39
DX: O26.891 Other specified pregnancy related conditions, first trimester (principal); R10.2 Pelvic and perineal pain; R10.31 Right lower quadrant pain; R10.32 Left lower quadrant pain; R11.0 Nausea; O99.331 Smoking (tobacco) complicating pregnancy, first trimester; F17.200 Nicotine dependence, unspecified, uncomplicated; Z3A.01 Less than 8 weeks gestation of pregnancy
CPT/HCPCS: 36415; 76801; 80048; 81003; 84702; 85025; 99284

== ENCOUNTER 2019-02-18 07:22 | Inpatient (IN) | payer OTHER ==
[2019-02-18] MEDS ORDERED: LACTATED RINGERS 1,000 ML IV ONE (10:20)
[2019-02-18] MEDS ORDERED: CITRIC ACID-SODIUM CITRATE 15 ML CUP PO ONE (10:20)
[2019-02-18 10:57] VITALS: BMI 36.9
[2019-02-18 11:03] LABS: Basophils % (A) 0 %; Eosinophils # (A) 0.1 k/uL (0-0.7); Eosinophils % (A) 1 %; HCT 37.2 % (34.0-46.0); HGB 12.7 gm/dL (11.4-16.0); Lymphocytes # (A) 1.5 k/uL (1.0-4.8); Lymphocytes % (A) 17 %; MCH 31.5 pg (25.0-35.0); MCHC 34.2 g/dL (31.0-37.0); MCV 92.1 fL (80.0-100.0); Mean Platelet Volume 8.4; Monocytes # (A) 0.4 k/uL (0-1.0); Monocytes % (A) 4 %; Neutrophils # (A) 6.8 k/uL (1.3-7.7); Neutrophils % (A) 76 %; Platelet Count 167 k/uL (150-450); Poikilocytosis Slight; RBC 4.04 m/uL (3.80-5.40); RDW 13.6 % (11.5-15.5); WBC 8.9 k/uL (3.8-10.6)
[2019-02-18] MEDS ORDERED: diphenhydrAMINE 50 MG/ML 1 ML VIAL IVP PRN ×3 (11:03→12:13)
[2019-02-18] MEDS ORDERED: ONDANSETRON 4 MG/2 ML VIAL IVP PRN ×2 (11:03→12:13)
[2019-02-18] MEDS ORDERED: NALOXONE 0.4 MG/ML 1 ML VIAL IV PRN ×2 (11:03→12:13)
[2019-02-18] MEDS ORDERED: ZOLPIDEM 5 MG TAB PO PRN (11:03)
[2019-02-18] MEDS ORDERED: diphenhydrAMINE 50 MG CAP PO PRN (11:03)
[2019-02-18] MEDS ORDERED: diphenhydrAMINE 25 MG CAP PO PRN (11:03)
[2019-02-18] MEDS ORDERED: METOCLOPRAMIDE 5 MG/ML 2 ML VIAL IVP PRN (11:03)
--- NOTE | 2019-02-18 11:03 | P.HPOB ---
History of Present Illness H&P Date: 02/18/19 Chief Complaint: IUP at 39 and 2/sevenths weeks, breech, LGA This is a 24-year-old 2 para 1000 at 39-2/7 weeks that presented to labor and delivery for primary secondary to breech presentation, LGA, patient has been receiving routine care with myself since the first trimester. Patient does have a history of an with congenital heart disorder echo on this child was normal. Her prior as stated above was care with congenital heart disorder, spina bifida in this child at 6 weeks of age. This has been essentially uncomplicated. On blood work she has a blood type of A+, rubella immune, RPR nonreactive, hepatitis B surface antigen negative, HIV negative, she did fail her 1 hour Glucola but subsequently passed her 3 hour GTT, her second gestational diabetes screen at 28 weeks was normal. GBS was noted to be negative on 01/30. Review of Systems Constitutional: Denies chills, Denies fatigue, Denies fever Ears, nose, mouth and throat: Denies headache Cardiovascular: Reports leg edema Respiratory: Denies dyspnea Gastrointestinal: Denies nausea, Denies vomiting Genitourinary: Reports Past Medical History Past Medical History: Asthma, GERD/Reflux Additional Past Medical History / Comment(s): head injury -2013 History of Any Multi-Drug Resistant Organisms: None Reported Past Surgical History: No Surgical Hx Reported Past Anesthesia/Blood Transfusion Reactions: Family History of Problems w/ Anesthesia Additional Past Anesthesia/Blood Transfusion Reaction / Comment(s): Sister has problem where local anesthetics don't work. Smoking Status: Former smoker - Past Family History Mother Family Medical History: GERD/Reflux Medications and Allergies Home Medications Medication Instructions Recorded Confirmed Type [id number]-[id number]-[id number] Acid 1 cap PO DAILY 07/10/18 02/18/19 History [-U Capsule (formulary)] Allergies Allergy/AdvReac Type Severity Reaction Status Date / Time No Known Allergies Allergy Verified 02/18/19 10:18 Exam Osteopathic Statement: *. No significant issues noted on an osteopathic structural exam other than those noted in the History and Physical/Consult. Intake and Output 02/17/19 02/18/19 02/18/19 22:59 06:59 14:59 Other: Weight 91.626 kg Targeted physical exam is performed on this date and e commerce merchandising coordinator a well-nourished well-developed female in no acute distress, breathing is noted to be nonlabored, heart has a regular rate and rhythm, abdomen is noted to be gravid and large for gestational age, extremities +1 edema. heart tones returned to be category 1 and she is not chapo. Cervical exam is deferred at this time. Assessment and Plan (1) Term Current Visit: Yes Status: Acute Code(s): Z34.90 - ENCNTR FOR SUPRVSN OF NORMAL , UNSP, UNSP TRIMESTER SNOMED Code(s): 29285072 (2) Breech Current Visit: Yes Status: Acute Code(s): O32.1XX0 - MATERNAL CARE FOR BREECH PRESENTATION, UNSP SNOMED Code(s): 897192837 Plan: This pleasant 24-year-old 2 para 1000 at 39-2/7 weeks presents to labor and delivery for primary . Infant was noted to be in breech presentation, and noted to be LGA 9 lbs. 5 oz. greater than 99th percentile.
[2019-02-18] MEDS ORDERED: OXYTOCIN 20 UNITS/1000 ML NS 1,000 ML IV SCH (11:15)
[2019-02-18] MEDS ORDERED: LACTATED RINGERS 1,000 ML BAG IV ONE (11:35)
[2019-02-18] MEDS ORDERED: OXYTOCIN 10 UNIT/ML 1 ML VIAL ONE (11:35)
[2019-02-18] MEDS ORDERED: PHENYLEPHRINE-0.9% NACL SYG 1 MG/10 ML SYRINGE ONE (11:35)
[2019-02-18] MEDS ORDERED: MORPHINE SULFATE (PF) 0.3 MG/0.3 ML SYR ONE (11:35)
[2019-02-18] MEDS ORDERED: ONDANSETRON 4 MG/2 ML VIAL ONE (11:35)
[2019-02-18] MEDS ORDERED: IBUPROFEN IV 800 MG in SODIUM CHLORIDE 0.9% 250 ML IV ONE (12:00)
[2019-02-18] MEDS ORDERED: ACETAMINOPHEN IV (For NPO) 1,000 MG in EMPTY BAG 1 BAG IVPB ONE (12:00)
[2019-02-18] MEDS ORDERED: HYDROmorphone 0.5 MG/0.5 ML SYRINGE IVP PRN (12:13)
[2019-02-18] MEDS ORDERED: KETOROLAC 30 MG/ML 1 ML VIAL IVP PRN (12:13)
--- NOTE | 2019-02-18 12:25 | P.OP ---
Date of Procedure: 02/18/19 Preoperative Diagnosis: IUP at 39 and 2/sevenths weeks, breech, LGA Postoperative Diagnosis: Same Procedure(s) Performed: Primary low transverse section Anesthesia: spinal Aerial Gunner Superintendent #1: Madison Mcnulty Aerial Gunner Superintendent #2: Jaycee Duran Pathology: none sent Condition: stable Disposition: PACU Indications for Procedure: Breech presentation, LGA Operative Findings: female in footling breech presentation, weight 9 pounds ounces with delivery time 1142 Apgars of 8 and 9 at one and 5 minutes respectively. Normal appearing uterus tubes and ovaries were appreciated. Description of Procedure: Patient was taken back to the operating suite where spinal anesthesia was performed by the anesthesia department. Once anesthesia was noted to be adequate she was then prepped and draped in normal sterile fashion in the dorsal supine position. A Pfannenstiel skin incision was made with the scalpel and carried through the underlying layer of fascia. The fascia was then incised in the midline and extended laterally. The superior aspect of the fascial incision was then grasped manuelito clamps, elevated and underlying rectus muscles dissected off sharply. Attention was then turned to the inferior aspect of the fascial incision which was grasped manuelito clamps, elevated and underlying rectus muscles dissected off sharply. The rectus muscles were in the midline the peritoneum was identified and entered. The bladder blade was then inserted and the abdomen the vesicouterine peritoneum was identified and the bladder flap was then created using sharp and blunt dissection. The bladder blade was then reinserted. The scalpel was then used to create a hysterotomy incision a foot was encountered the infant was converted to a rio breech presentation and delivered in the usual fashion. The umbilical cord was then doubly clamped and cut and the was handed off to awaiting RN. The placenta was delivered manually intact with a three-vessel cord being noted. Moist laparotomy sponge was then used to clear the uterus of all debris. The hysterotomy incision was then closed with 0 Vicryl in a running locked fashion from one lateral edge the other. A second layer of suture was used to obtain hemostasis. A small amount of bleeding was noted on the left-hand side of the uterine incision therefore a [id number] suture was used to obtain hemostasis. The pelvis is irrigated copiously and hemostasis was appreciated on the hysterotomy site the uterus was then returned to the abdomen. Once again the hysterotomy site was inspected hemostasis was appreciated. The gutters were cleared of all clots and debris. The fascial incision was then closed with 0 Vicryl in a running fashion from one lateral edge the other. The subcutaneous tissue was irrigated hemostasis was appreciated this was closed with 3-0 Vicryl. The skin was then closed with 4-0 Vicryl in a subcuticular fashion. Steri-Strips and a sterile dressing were applied. Patient and tolerated procedure well all counts were correct 2 patient was taken back to her delivery room for recovery.
[2019-02-18] MEDS: LACTATED RINGERS 1,000 ML IV SCH (14:22)
[2019-02-18 16:06] VITALS: RESP 16
[2019-02-19] MEDS: SENNOSIDES-DOCUSATE SODIUM 1 EACH TAB PO SCH ×3 (05:44→19:49)
[2019-02-19 06:58] LABS: Basophils % (A) 0 %; Eosinophils # (A) 0.2 k/uL (0-0.7); Eosinophils % (A) 2 %; HCT 31.7 % (34.0-46.0); HGB 11.1 gm/dL (11.4-16.0); Lymphocytes % (A) 13 %; MCH 31.7 pg (25.0-35.0); MCHC 35.1 g/dL (31.0-37.0); MCV 90.3 fL (80.0-100.0); Mean Platelet Volume 8.6; Monocytes # (A) 0.3 k/uL (0-1.0); Monocytes % (A) 4 %; Neutrophils # (A) 6.3 k/uL (1.3-7.7); Neutrophils % (A) 79 %; Platelet Count 126 k/uL (150-450); Poikilocytosis Slight; RBC 3.51 m/uL (3.80-5.40); RDW 13.7 % (11.5-15.5)
[2019-02-19] MEDS: ACETAMINOPHEN TAB 325 MG TAB PO PRN ×3 (07:01→19:49)
--- NOTE | 2019-02-19 08:27 | P.PNOBGPC ---
Subjective - Subjective Principal diagnosis: POD 1 LTCS breech, LGA Interval history: Patient did well overnight. She is ambulating and voiding without difficulty. She is tolerating clear liquids without nausea or vomiting. She states her pain is well-controlled. She is breast and bottle feeding at this time. Her lochia is minimal. Patient reports: Reports appetite normal, Reports voiding normally, Reports pain well controlled, Reports ambulating normally : doing well Objective - Vital Signs Latest vital signs: Vital Signs Temp Pulse Resp BP Pulse Ox 02/19/19 05:38 97 02/19/19 05:37 16 02/19/19 03:51 98.2 F 85 16 112/58 02/19/19 03:50 16 02/19/19 02:00 16 98 02/19/19 00:00 16 02/18/19 22:00 16 100 02/18/19 20:00 98.1 F 88 16 124/69 02/18/19 18:00 16 95 02/18/19 16:00 97.9 F 90 16 125/71 95 02/18/19 14:18 98.4 F 91 18 120/67 02/18/19 13:48 98.4 F 79 18 117/76 100 02/18/19 13:18 97.8 F 82 18 121/77 99 02/18/19 13:13 81 18 99 02/18/19 13:03 97.8 F 81 18 119/77 99 02/18/19 12:48 82 18 119/68 98 02/18/19 12:33 97.8 F 88 18 112/63 02/18/19 12:18 97.8 F 83 18 106/61 02/18/19 12:13 97.8 F 88 18 106/61 98 02/18/19 10:46 97.2 F L 117 H 16 131/58 Intake and Output 02/18/19 02/19/19 02/19/19 22:59 06:59 14:59 Output Total 800 100 Balance -800 -100 Output: Urine 800 100 Uretheral (Walker) 400 - Exam Extremities: Present: normal, edema Abdomen: Present: normal appearance, soft Incision: Present: normal, dry, intact Uterus: Present: normal, firm - Labs Labs: Abnormal Lab Results - Last 24 Hours (Table) 02/19/19 Range/Units 06:34 RBC 3.51 L (3.80-5.40) m/uL Hgb 11.1 L (11.4-16.0) gm/dL Hct 31.7 L (34.0-46.0) % Plt Count 126 L (150-450) k/uL Assessment and Plan (1) Term Current Visit: Yes Status: Acute Code(s): Z34.90 - ENCNTR FOR SUPRVSN OF NORMAL , UNSP, UNSP TRIMESTER SNOMED Code(s): 11218543 (2) Breech Current Visit: Yes Status: Acute Code(s): O32.1XX0 - MATERNAL CARE FOR BARRIE ECH PRESENTATION, UNSP SNOMED Code(s): 522275976 Plan: Patient continues to do well postoperatively will continue routine postop care and anticipate discharge home tomorrow.
[2019-02-19] MEDS: LACTATED RINGERS 1,000 ML IV SCH (09:40)
[2019-02-19] MEDS: PRENATAL VIT-IRON-FOLIC ACID 1 EACH CAP PO SCH (09:41)
--- NOTE | 2019-02-19 10:38 | P.PN ---
Progress Note - Text Anesthesia POD 1. Patient is status post section under spinal anesthesia with intra-thecal preservative free morphine 300 g. Mild pruritus, good post-op analgesia, and no headache or other complications.
[2019-02-19] MEDS: IBUPROFEN 600 MG TAB PO PRN ×2 (11:00→17:26)
[2019-02-20] MEDS: IBUPROFEN 600 MG TAB PO PRN ×2 (01:04→11:01)
[2019-02-20] MEDS: ACETAMINOPHEN TAB 325 MG TAB PO PRN ×2 (08:15→13:10)
[2019-02-20] MEDS: PRENATAL VIT-IRON-FOLIC ACID 1 EACH CAP PO SCH (08:18)
[2019-02-20] MEDS: SENNOSIDES-DOCUSATE SODIUM 1 EACH TAB PO SCH (08:18)
--- NOTE | 2019-02-20 09:32 | P.DS ---
Providers Date of admission: 02/18/19 10:06 Expected date of discharge: 02/20/19 Attending physician: Madison Mcnulty Primary care physician: Stated None Hospital Course: This is a 24-year-old white female 2 para 1001 EDC 02/23/2019 at 39-2/7 weeks' gestation. Patient presented for section for breech presentation at term. is unremarkable, group B strep cultures negative, blood type A+, rubella status immune. Please see dictated history and physical for details. Patient underwent a low-transverse section and gave to a liveborn female infant with scores of 8 and 9 at one and 5 minutes respectively. weighed 9 lbs. 1 oz. or 4100 g. She did well intraoperatively. Please see dictated operative note for details. This morning the patient and her baby are both doing well. The patient is voiding, ambulating, passing flatus without difficulty. Vital signs are stable and she is afebrile. Fundus is firm and in the midline, symmetric and 18 week size. Incision is clean and dry, intact, Steri-Strips applied. Breasts are not engorged. Breast-feeding is going well. Patient is judged to be in very good condition for discharge home. She will be discharged home today, and follow-up with Dr. Mcnulty in 2 weeks for incision check. She is reminded no intercourse, tampons or douching. She'll use gqws-lof-ivwqgkl Advil or Aleve, or Motrin as needed for pain. I've asked h er to call with any fevers shakes or chills, foul smelling or copious lochia, with the passage of large blood clots, with any pain not alleviated by dian-qvl-ghsqbtm products, with difficulties breast-feeding, or with any concerns. I have given her prescription for a double electric breast pump per her request. Contraception has been discussed, and she will further her discussion in the office with her primary physician. Patient Condition at Discharge: Good Plan - Discharge Summary Discharge Rx Participant: No New Discharge Prescriptions: No Action Ewy-Apyo-Rmist Acid [-U Capsule (formulary)] 1 cap PO DAILY Discharge Medication List Wut-Ysvj-Rtqhx Acid [-U Capsule (formulary)] 1 cap PO DAILY 07/10/18 [History] Follow up Appointment(s)/Referral(s): Madison Mcnulty DO [Doctor of Osteopathic Medicine] - 2 Weeks Discharge Disposition: HOME SELF-CARE
[2019-02-20 12:09] VITALS: BP 137/86; PULSE 92; TEMP 97.9
== END 2019-02-20 14:00 | disposition home or self-care (01) | DRG 788 ==
LOC: 4FBP 10:06
PROVIDERS: ADMIT Obstetrics & Gynecology Obstetrics; ATTEND Obstetrics & Gynecology Obstetrics
PROC: 10D00Z1 Extraction of Products of Conception, Low, Open Approach (ICD-10-PCS; principal; 2019-02-18 12:00)
DX: O32.1XX0 Maternal care for breech presentation, not applicable or unspecified (principal); O36.63X0 Maternal care for excessive fetal growth, third trimester, not applicable or unspecified; Z37.0 Single live birth; Z3A.39 39 weeks gestation of pregnancy; Z87.891 Personal history of nicotine dependence
CPT/HCPCS: 85025; 86850; 86900; 86901

== ENCOUNTER 2022-08-09 12:58 | Emergency (ER) | payer OTHER ==
[2022-08-09] MEDS ORDERED: SODIUM CHLORIDE 0.9% 1,000 ML IV STA (13:21)
--- NOTE | 2022-08-09 13:27 | ED ---
General Adult HPI - General Chief complaint: Abdominal Pain Stated complaint: 9 weeks preg/cramping Time Seen by Provider: 08/09/22 13:04 Source: patient, RN notes reviewed, old records reviewed Mode of arrival: ambulatory Limitations: no limitations - History of Present Illness Initial comments: Patient is a 27-year-old female who presents emergency Department plenty of abdominal pain. Patient is a , with one prior child dying secondary to heart complications after presents emergency Department complaining of lower abdominal cramping for the last 2-3 days. Denies any nausea or vomiting. Endorses mild constipation. Denies any vaginal discharge or bleeding. Denies any dysuria or hematuria. Denies any chest pain or shortness breath. Has not seen her ELA TEACHER. Is approximately currently 9 weeks . Has been compliant with vitamins. Has no other acute complaints at this time. Presents for further evaluation at this time.No known palliative or provocative factors for the cramping. - Related Data Home Medications Medication Instructions Recorded Confirmed Tly-Fkyc-Mdogp Acid 1 cap PO DAILY 07/10/18 02/18/19 [-U Capsule (formulary)] Allergies Allergy/AdvReac Type Severity Reaction Status Date / Time No Known Allergies Allergy Verified 08/09/22 13:03 Review of Systems ROS Statement: Those systems with pertinent positive or pertinent negative responses have been documented in the HPI. Review of Systems: CONST: Denies fever EYES: Denies blurry vision ENT: Denies nasal congestion C/V: Denies Chest pain RESP: Denies shortness of breath GI: Endorses intermittent abdominal cramping : Denies dysuria SKIN: Denies rash. MSK: Denies joint pain. NEURO: Denies headache ROS Other: All systems not noted in ROS Statement are negative. Past Medical History Past Medical History: Asthma Additional Past Medical History / Comment(s): head injury -2014 History of Any Multi-Drug Resistant Organisms: None Reported Past Surgical History: No Surgical Hx Reported Past Anesthesia/Blood Transfusion Reactions: No Reported Reaction Additional Past Anesthesia/Blood Transfusion Reaction / Comment(s): Sister has problem where local anesthetics don't work. Past Psychological History: Anxiety, Bipolar, Depression, Panic Disorder Smoking Status: Vaper Past Alcohol Use History: Occasional Past Drug Use History: None Reported - Past Family History Mother Family Medical History: GERD/Reflux General Exam - General Exam Comments Initial Comments: General: Appears in no acute distress. HEAD: Normal with no signs of head trauma. EYES: EOMI ENT: Hearing grossly intact, normal oropharynx. RESPIRATORY: Clear breath sounds bilaterally. No wheezes, rales, or rhonchi. C/V: Regular rate and rhythm. S1 and S2 auscultated, peripheral pulses 2+ and intact throughout ABD: Abd is soft, nontender, nondistended. No guarding. No rebound tenderness. No peritoneal signs. EXT: Normal range of motion, no obvious deformity SKIN: No rashes or lesions observed on exposed skin. NEURO: Alert and oriented 4. No focal deficits. Limitations: no limitations Course Vital Signs 08/09/22 08/09/22 08/09/22 13:01 14:10 15:38 Temperature 97.5 F L 97.8 F Pulse Rate 81 69 72 Respiratory 20 18 18 Rate Blood Pressure 119/79 101/67 104/65 O2 Sat by Pulse 99 100 100 Oximetry Medical Decision Making - Medical Decision Making Was pt. sent in by a medical professional or institution (Dr. PA, STEEL SASH ERECTOR, urgent care, hospital, or long-term...) When possible be specific @ -No Did you speak to anyone other than the patient for history (EMS, parent, family, police, friend...)? What history was obtained from this source @ -No Did you review nursing and triage notes (agree or disagree)? Why? @ -I reviewed and agree with nursing and triage notes Were old charts reviewed (outside hosp., previous admission, EMS record, old EKG, old radiological studies, urgent care reports/EKG's, long-term records)? Report findings @ -No old charts were reviewed Differential Diagnosis (chest pain, altered mental status, abdominal pain women, abdominal pain men, vaginal bleeding, weakness, fever, dyspnea, syncope, headache, dizziness, GI bleed, back pain, seizure, CVA, palpatations, mental health, musculoskeletal)? @ -Hent miscarriage, abdominal cramping, constipation, current , UTI. This list is not all-inclusive. EKG interpreted by me (3pts min.). @ -None done X-rays interpreted by me (1pt min.). @ -None done CT interpreted by me (1pt min.). @ -None done U/S interpreted by me (1pt. min.). @ -Ultrasound as interpreted by radiology reveals a viable intrauterine at 7 weeks 4 days gestation with a heart rate of 144. Patient also has an adjacent subchorionic hemorrhage. What testing was considered but not performed or refused? (CT, X-rays, U/S, labs)? Why? @ -None What meds were considered but not given or refused? Why? @ -None Did you discuss the management of the patient with other professionals (professionals i.e. , PA, STEEL SASH ERECTOR, lab, RT, psych nurse, web content & social media manager, utility bill collection clerk, teacher, public health service officer, case sealer)? Give summary @ -No Was smoking cessation discussed for >3mins.? @ -No Was critical care preformed (if so, how long)? @ -No Were there social determinants of health that impacted care today? How? (Homelessness, low income, unemployed, alcoholism, drug addiction, transportation, low edu. Level, literacy, decrease access to med. care, prison, rehab)? @ -No Was there de-escalation of care discussed even if they declined (Discuss DNR or withdrawal of care, Hospice)? DNR status @ -No What co-morbidities impacted this encounter? (DM, HTN, Smoking, COPD, CAD, Cancer, CVA, ARF, Chemo, Hep., AIDS, mental health diagnosis, sleep apnea, morbid obesity)? @ -None Was patient admitted / discharged? Hospital course, mention meds given and route, prescriptions, significant lab abnormalities, going to OR and other pertinent info. @ -Based on the patient's presentation and physical exam, I'm concerned for possible threatened miscarriage. We will obtain ultrasound of the as well as obtain basic labs, type and screen, quantitative beta-hCG. We'll also obtain urine studies. She'll be given a 1 L fluid bolus. I did offer the patient Tylenol which she declines at this time. Vital signs within acceptable limits. She was in agreement this plan. Patient's labs are within acceptable limits. Elevated quantitative beta hCG which is anticipated. Urine is clean. Patient's blood type is A+. Patient's ultrasound reveals a bowl intrauterine at 7 weeks and 4 days. Heart rate is 144 bpm. Patient also has a subchorionic hemorrhage. On reevaluation, patient is feeling the same. Asymptomatic. We discussed results. She expresses that she understands that she has a subchorionic hemorrhage. Discussed that she has a threatened miscarriage at this time. She expressed understanding. Recommended strict follow-up with ELA TEACHER which she has not done yet. Does have an appointment within the next 1-2 weeks. Strict return precautions discussed. She was in agreement this plan. Discussed continuing vitamins. She'll be discharged home at this time. I instructed the patient to follow up with their PCP in the next 1-3 days. I explained that the patient should return to the emergency department if they experience any worsening symptoms. Strict return precautions were discussed with the patient. The patient expressed understanding of these instructions. I answered all questions that the patient had. The patient was discharged home in good condition with their prescriptions and follow up information. Undiagnosed new problem with uncertain prognosis? @ -No Drug Therapy requiring intensive monitoring for toxicity (Heparin, Nitro, Insulin, Cardizem)? @ -No Were any procedures done? @ -No Diagnosis/symptom? @ -Threatened miscarriage in first trimester , subchorionic hemorrhage Acute, or Chronic, or Acute on Chronic? @ -Acute Uncomplicated (without systemic symptoms) or Complicated (systemic symptoms)? @ -Uncomplicated Side effects of treatment? @ -none Exacerbation, Progression, or Severe Exacerbation] @ -no Poses a threat to life or bodily function? @ -no - Lab Data Result diagrams: 08/09/22 13:36 08/09/22 13:36 Lab Results 08/09/22 08/09/22 08/09/22 Range/Units 13:36 13:36 13:36 WBC 7.6 (3.8-10.6) k/uL RBC 4.30 (3.80-5.40) m/uL Hgb 13.5 (11.4-16.0) gm/dL Hct 39.4 (34.0-46.0) % MCV 91.6 (80.0-100.0) fL MCH 31.4 (25.0-35.0) pg MCHC 34.3 (31.0-37.0) g/dL RDW 13.4 (11.5-15.5) % Plt Count 181 (150-450) k/uL MPV 8.4 Neutrophils % 71 % Lymphocytes % 22 % Monocytes % 5 % Eosinophils % 1 % Basophils % 0 % Neutrophils # 5.4 (1.3-7.7) k/uL Lymphocytes # 1.6 (1.0-4.8) k/uL Monocytes # 0.4 (0-1.0) k/uL Eosinophils # 0.1 (0-0.7) k/uL Basophils # 0.0 (0-0.2) k/uL PT 10.5 (9.0-12.0) sec INR 1.0 (<1.2) APTT 23.0 (22.0-30.0) sec Sodium (137-145) mmol/L Potassium (3.5-5.1) mmol/L Chloride (98-107) mmol/L Carbon Dioxide (22-30) mmol/L Anion Gap mmol/L BUN (7-17) mg/dL Creatinine (0.52-1.04) mg/dL Est GFR (CKD-EPI)AfAm (>60 ml/min/1.73 sqM) Est GFR (CKD-EPI)NonAf (>60 ml/min/1.73 sqM) Glucose (74-99) mg/dL Calcium (8.4-10.2) mg/dL Total Bilirubin (0.2-1.3) mg/dL AST (14-36) U/L ALT (4-34) U/L Alkaline Phosphatase (38-126) U/L Total Protein (6.3-8.2) g/dL Albumin (3.5-5.0) g/dL HCG, Quant mIU/mL Urine Color Yellow Urine Appearance Clear (Clear) Urine pH 6.0 (5.0-8.0) Ur Specific [place] 1.019 (1.001-1.035) Urine Protein Negative (Negative) Urine Glucose (UA) Negative (Negative) Urine Ketones Negative (Negative) Urine Blood Negative (Negative) Urine Nitrite Negative (Negative) Urine Bilirubin Negative (Negative) Urine Urobilinogen <2.0 (<2.0) mg/dL Ur Leukocyte Esterase Trace H (Negative) Urine WBC 2 (0-5) /hpf Ur Squamous Epith Cells <1 (0-4) /hpf Urine Bacteria Rare H (None) /hpf Urine Mucus Rare H (None) /hpf Blood Type Blood Type Recheck Bld Type Recheck Status Antibody Screen Spec Expiration Date 08/09/22 08/09/22 Range/Units 13:36 13:37 WBC (3.8-10.6) k/uL RBC (3.80-5.40) m/uL Hgb (11.4-16.0) gm/dL Hct (34.0-46.0) % MCV (80.0-100.0) fL MCH (25.0-35.0) pg MCHC (31.0-37.0) g/dL RDW (11.5-15.5) % Plt Count (150-450) k/uL MPV Neutrophils % % Lymphocytes % % Monocytes % % Eosinophils % % Basophils % % Neutrophils # (1.3-7.7) k/uL Lymphocytes # (1.0-4.8) k/uL Monocytes # (0-1.0) k/uL Eosinophils # (0-0.7) k/uL Basophils # (0-0.2) k/uL PT (9.0-12.0) sec INR (<1.2) APTT (22.0-30.0) sec Sodium 137 (137-145) mmol/L Potassium 4.2 (3.5-5.1) mmol/L Chloride 101 (98-107) mmol/L Carbon Dioxide 25 (22-30) mmol/L Anion Gap 11 mmol/L BUN 9 (7-17) mg/dL Creatinine 0.42 L (0.52-1.04) mg/dL Est GFR (CKD-EPI)AfAm >90 (>60 ml/min/1.73 sqM) Est GFR (CKD-EPI)NonAf >90 (>60 ml/min/1.73 sqM) Glucose 69 L (74-99) mg/dL Calcium 9.0 (8.4-10.2) mg/dL Total Bilirubin 0.4 (0.2-1.3) mg/dL AST 26 (14-36) U/L ALT 29 (4-34) U/L Alkaline Phosphatase 65 (38-126) U/L Total Protein 7.0 (6.3-8.2) g/dL Albumin 4.3 (3.5-5.0) g/dL HCG, Quant 833297.0 mIU/mL Urine Color Urine Appearance (Clear) Urine pH (5.0-8.0) Ur Specific [place] (1.001-1.035) Urine Protein (Negative) Urine Glucose (UA) (Negative) Urine Ketones (Negative) Urine Blood (Negative) Urine Nitrite (Negative) Urine Bilirubin (Negative) Urine Urobilinogen (<2.0) mg/dL Ur Leukocyte Esterase (Negative) Urine WBC (0-5) /hpf Ur Squamous Epith Cells (0-4) /hpf Urine Bacteria (None) /hpf Urine Mucus (None) /hpf Blood Type A Positive Blood Type Recheck A Pos Bld Type Recheck Status No Antibody Screen NEGATIVE Spec Expiration Date 08/12/20222336 Disposition Clinical Impression: Threatened miscarriage, Subchorionic hematoma Disposition: HOME SELF-CARE Condition: Good Instructions (If sedation given, give patient instructions): Threatened Miscar riage (ED) Is patient prescribed a controlled substance at d/c from ED?: No Referrals: Latrice Leonardo MD [Primary Care Provider] - 1-2 days Time of Disposition: 15:15
[2022-08-09 14:18] LABS: Basophils % (A) 0 %; Eosinophils # (A) 0.1 k/uL (0-0.7); Eosinophils % (A) 1 %; HCT 39.4 % (34.0-46.0); HGB 13.5 gm/dL (11.4-16.0); Lymphocytes # (A) 1.6 k/uL (1.0-4.8); Lymphocytes % (A) 22 %; MCH 31.4 pg (25.0-35.0); MCHC 34.3 g/dL (31.0-37.0); MCV 91.6 fL (80.0-100.0); Mean Platelet Volume 8.4; Monocytes # (A) 0.4 k/uL (0-1.0); Monocytes % (A) 5 %; Neutrophils # (A) 5.4 k/uL (1.3-7.7); Neutrophils % (A) 71 %; Platelet Count 181 k/uL (150-450); RDW 13.4 % (11.5-15.5); WBC 7.6 k/uL (3.8-10.6)
--- NOTE | 2022-08-09 14:21 | US ---
EXAMINATION TYPE: Transabdominal DATE OF EXAM: 08/09/2022 2:07 PM COMPARISON: NONE CLINICAL INDICATION: Female, 27 years old with history of abdominal cramping; pelvic pain EXAM PERFORMED: Transabdominal (TA) EXAM MEASUREMENTS: GESTATIONAL AGE / DATING Physician Established: Not yet established Dates by LMP: LMP unknown Dates by First Scan: No previous this is first scan Dates by Current Scan for: (7 weeks/4 days) EDC: 03/24/23 MATERNAL ANATOMY Uterus: 9.7 x 6.8 x 8.1cm Right Ovary: 2.7 x 1.3 x 1.1cm Left Ovary: 3.5 x 3.2 x 2.7cm Post CDS / Adnexa: wnl Presence of free fluid: no Presence of corpus luteal cyst: yes, left ovary = 2.3 x 1.6 x 2.2cm Presence of subchorionic bleed: yes, adjacent to gestational sac = 2.9 x 1.0 x 1.2cm GESTATION / SURVEY CRL: 1.3cm (7 weeks/4 days) Yolk Sac (normal less than 6mm): 0.4cm Heart Rate: 144 bpm Rhythm: Normal IUP: Viable IUP Date of LMP: unknown, end of June Beta HcG (if available): Not available at this time IMPRESSION: There is a viable 7 week 4 day gestation with heart rate of 144 bpm and an adjacent subchorionic hemo rrhage measuring 2.9 x 1.2 x 1.1 cm.
[2022-08-09 14:28] LABS: Prothrombin Time 10.5 sec (9.0-12.0)
[2022-08-09 14:39] LABS: ALT 29 U/L (4-34); AST 26 U/L (14-36); African American GFR (CKD) >90 (>60 ml/min/1.73 sqM); Albumin 4.3 g/dL (3.5-5.0); Alkaline Phosphatase 65 U/L (38-126); Anion Gap 11 mmol/L; Blood Urea Nitrogen 9 mg/dL (7-17); Carbon Dioxide 25 mmol/L (22-30); Chloride 101 mmol/L (98-107); Glucose 69 mg/dL (74-99); Non-African American GFR(CKD) >90 (>60 ml/min/1.73 sqM); Potassium 4.2 mmol/L (3.5-5.1); Sodium 137 mmol/L (137-145); Total Bilirubin 0.4 mg/dL (0.2-1.3)
[2022-08-09 14:58] VITALS: RESP 18; TEMP 97.8
[2022-08-09 15:15] LABS: Appearance,Urine Clear (Clear); Bacteria,Urine Rare /hpf; Bilirubin,Urine Negative (Negative); Blood,Urine Negative (Negative); Color,Urine Yellow; Glucose,Urine (UA) Negative (Negative); Ketones,Urine Negative (Negative); Leukocyte Esterase,Urine Trace (Negative); Mucus,Urine Rare /hpf; Nitrite,Urine Negative (Negative); Protein,Urine Negative (Negative); Specific Gravity,Urine 1.019 (1.001-1.035); Squamous Epithelial Cell,Urine <1 /hpf (0-4); Urobilinogen,Urine <2.0 mg/dL (<2.0); WBC,Urine 2 /hpf (0-5)
[2022-08-09 15:39] VITALS: BP 104/65; PULSE 72
== END 2022-08-09 15:39 | disposition home or self-care (01) ==
LOC: EC 12:58
DX: O20.0 Threatened abortion (principal); O20.8 Other hemorrhage in early pregnancy; O99.511 Diseases of the respiratory system complicating pregnancy, first trimester; J45.909 Unspecified asthma, uncomplicated; O99.341 Other mental disorders complicating pregnancy, first trimester; F31.9 Bipolar disorder, unspecified; F41.9 Anxiety disorder, unspecified; O99.331 Smoking (tobacco) complicating pregnancy, first trimester; F17.290 Nicotine dependence, other tobacco product, uncomplicated; Z79.899 Other long term (current) drug therapy; Z3A.09 9 weeks gestation of pregnancy
CPT/HCPCS: 36415; 76801; 80053; 81001; 84702; 85025; 85610; 85730; 86850; 86900; 86901; 96360; 99284

== ENCOUNTER 2023-01-19 16:13 | Outpatient (CLI) | payer OTHER ==
[2023-01-19 18:57] VITALS: BP 104/61; PULSE 86; RESP 17; TEMP 96.4
--- NOTE | 2023-02-15 10:50 | P.MSEPDOC ---
Presenting Problems - Arrival Data Date of Arrival on Unit: 01/19/23 Time of Arrival on Unit: 16:13 Mode of Transport: Ambulatory - Complaint OB-Reason for Admission/Chief Complaint: Possible Onset of Labor, Rule Out PROM Comment: pt states she has been ctxing/cramping since 1100 this AM, also states she believes she has been leaking fluid since then as well. Medical History - Information : 3 Para: 2 Term: 2 : 0 Abortions: Spontaneous or Elective: 0 Number of Living Children: 2 - Gestational Age Gestational Age by MALIK (wks/days): 30 Weeks and 2 Days Review of Systems - Review of Systems Constitutional: No problems Breast: No problems ENT: No problems Cardiovascular: No problems Respiratory: No problems Gastrointestinal: No problems Genitourinary: No problems Musculoskeletal: No problems Neurological: No problems Skin: No problems Vital Signs - Temperature Temperature: 96.4 F Temperature Source: Temporal Artery Scan - Pulse Right Pulse Rate: 86 Pulse Assessment Method: Automatic Cuff - Respirations Respiratory Rate: 17 Oxygen Delivery Method: Room Air O2 Sat by Pulse Oximetry: 98 - Blood Pressure Right Arm Blood Pressure: 104/61 Blood Pressure Mean: 75 Blood Pressure Source: Automatic Cuff Medical Screen Scoring - Uterine Contractions Resting: Soft to palpation - Assessment - Baby A Baseline FHR: 145 Heart Rate - NICHD Category: Category I (Normal) NST: Reactive Physician Notification - Physician Notified Physician Notified Date: 01/19/23 Physician Notified Time: 17:01 Physician: Madison Mcnulty New Order Received: Yes (cervical check) - Notification Comment Comment: physician called back with cervical check (closed/thick/high) and states okay for pt to be D/C'd home Maternal Triage Index - Maternal Triage Index Presenting for scheduled procedure w/no complaint: No - Stat/Priority 1 Stat Priority 1: No - Urgent/Priority 2 Urgent Priority 2: Yes Provider Notified: Madison Mcnulty Provider Notified Time: 17:01 Criteria Met for Priority 2: less than 34 weeks ga with c/o ctx/cramping and possible ROM Disposition - Disposition OB Disposition: Discharge to home Discharge Date: 01/19/23 Discharge Time: 17:43 I agree with the RN Medical Screening Exam: Yes Case reviewed; plan agreed upon as documented in EMR&OBIX.: Yes Diagnosis: RELATED CONDITIONS, UNSPECIFIED, THIRD TRIMESTER
== END 2023-01-19 17:43 | disposition home or self-care (01) ==
LOC: FBPOP 16:13
PROVIDERS: ATTEND Obstetrics & Gynecology Obstetrics
DX: O47.03 False labor before 37 completed weeks of gestation, third trimester (principal); O99.333 Smoking (tobacco) complicating pregnancy, third trimester; F17.200 Nicotine dependence, unspecified, uncomplicated; Z3A.30 30 weeks gestation of pregnancy
CPT/HCPCS: 59025; 84112; G0463; 99213

== ENCOUNTER 2023-03-27 06:08 | Inpatient (IN) | payer OTHER ==
[2023-03-27] MEDS ORDERED: CARBOPROST TROMETHAMINE 250 MCG/ML 1 ML AMP IM PRN (06:14)
[2023-03-27] MEDS ORDERED: miSOPROStoL 200 MCG TAB PO PRN (06:14)
[2023-03-27] MEDS ORDERED: TERBUTALINE 1 MG/ML VIAL SQ PRN (06:14)
[2023-03-27] MEDS ORDERED: LIDOCAINE 0.5% (PF) 5 MG/ML (50 ML SDV) SQ PRN (06:14)
[2023-03-27] MEDS ORDERED: METHYLERGONOVINE 0.2 MG/ML 1 ML AMP IM PRN (06:14)
[2023-03-27] MEDS ORDERED: OXYTOCIN 10 UNIT/ML 1 ML VIAL IM PRN (06:14)
[2023-03-27] MEDS ORDERED: TRANEXAMIC 1,000 MG/100ML-NACL 1,000 MG in EMPTY BAG 1 BAG IV PRN (06:14)
[2023-03-27] MEDS ORDERED: OXYTOCIN 30 UNITS/500 ML NS 30 UNIT in SALINE 1 500ML.BAG IV SCH ×2 (06:15→15:30)
[2023-03-27 06:42] LABS: Basophils % (A) 0 %; Eosinophils # (A) 0.1 k/uL (0-0.7); Eosinophils % (A) 2 %; HCT 34.1 % (34.0-46.0); HGB 11.6 gm/dL (11.4-16.0); Lymphocytes # (A) 1.4 k/uL (1.0-4.8); Lymphocytes % (A) 20 %; MCH 30.9 pg (25.0-35.0); Mean Platelet Volume 9.2; Monocytes # (A) 0.4 k/uL (0-1.0); Monocytes % (A) 6 %; Neutrophils # (A) 4.9 k/uL (1.3-7.7); Neutrophils % (A) 71 %; Platelet Count 147 k/uL (150-450); RBC 3.75 m/uL (3.80-5.40); RDW 13.8 % (11.5-15.5); WBC 6.9 k/uL (3.8-10.6)
[2023-03-27] MEDS ORDERED: AMPICILLIN 2,000 MG in SODIUM CHLORIDE 0.9% 100 ML IVPB STA (07:13)
[2023-03-27] MEDS: LACTATED RINGERS 1,000 ML IV SCH ×3 (07:22→14:49)
[2023-03-27 09:08] LABS: Amphetamine Screen,Urine Not Detected (NotDetected); Barbiturate Screen,Urine Not Detected (NotDetected); Benzodiazepines Screen,Urine Not Detected (NotDetected); Cocaine Screen,Urine Not Detected (NotDetected); Methadone Screen, Urine Not Detected (NotDetected); Opiate Screen,Urine Not Detected (NotDetected); Oxycodone Screen, Urine Not Detected (NotDetected); Phencyclidine Screen,Urine Not Detected (NotDetected); Tricyclic Antidepressant,Urine Not Detected (NotDetected); Urn Cannabinoid Scrn Not Detected (NotDetected)
[2023-03-27] MEDS: AMPICILLIN 1,000 MG in SODIUM CHLORIDE 0.9% 50 ML IVPB SCH ×2 (10:35→15:20)
[2023-03-27] MEDS ORDERED: SODIUM CHLORIDE 0.9% 250 ML BAG ONE (12:00)
[2023-03-27] MEDS ORDERED: fentaNYL (PF) 50 MCG/ML 5 ML AMP ONE (12:00)
[2023-03-27] MEDS ORDERED: ROPIVACAINE 5 MG/ML 30 ML VIAL ONE (12:00)
[2023-03-27] MEDS ORDERED: SIMETHICONE 80 MG CHEWABLE PO PRN (15:16)
[2023-03-27] MEDS ORDERED: diphenhydrAMINE 50 MG CAP PO PRN (15:16)
[2023-03-27] MEDS ORDERED: ACETAMINOPHEN TAB 325 MG TAB PO PRN (15:16)
[2023-03-27] MEDS ORDERED: diphenhydrAMINE 50 MG/ML 1 ML VIAL IVP PRN ×2 (15:16)
[2023-03-27] MEDS ORDERED: LANOLIN CREAM 5 GM TUBE TOPICAL PRN (15:16)
[2023-03-27] MEDS ORDERED: HYDROCORTISONE 2.5% RECTAL CREAM 30 GM TUBE RECTAL PRN (15:16)
[2023-03-27] MEDS ORDERED: ZOLPIDEM 5 MG TAB PO PRN (15:16)
[2023-03-27] MEDS ORDERED: diphenhydrAMINE 25 MG CAP PO PRN (15:16)
[2023-03-27] MEDS: IBUPROFEN 600 MG TAB PO SCH ×2 (16:10→22:38)
[2023-03-27] MEDS: SENNOSIDES-DOCUSATE SODIUM 1 EACH TAB PO SCH (20:47)
[2023-03-28] MEDS: IBUPROFEN 600 MG TAB PO SCH ×2 (04:26→15:51)
[2023-03-28 04:49] VITALS: RESP 16
--- NOTE | 2023-03-28 07:59 | P.PROBDLV ---
Vaginal Delivery Note - . Vaginal Delivery Note: 20-year-old G2 [id number] at 39-6/7 weeks that presented to labor and delivery for scheduled induction of labor. Patient has a history of a prior with her second delivery and desires trial of labor after . Patient was admitted to labor and delivery and Pitocin induction of labor was begun. Amniotomy is performed and clear fluid was obtained. Patient made good progress eventually becoming uncomfortable. Patient requested epidural. Epidural was placed without difficulty by the anesthesia department. Patient made quick progress toward complete began pushing and had a normal spontaneous vaginal delivery of a viable female at 1439, weight of 7 lbs. 0 oz., Apgars of 8 and 9 at one and 5 minutes respectively. Patient did sustain a first-degree vaginal laceration during delivery which was repaired in usual fashion with 3-0 Rapide. Uterus was noted to be firm and below the umbilicus after repair. Bladder was drained for a small amount of clear yellow urine after delivery of the placenta. Estimated blood loss 100 mL Patient and tolerated delivery well and are resting comfortably.
--- NOTE | 2023-03-28 08:00 | P.HPOB ---
History of Present Illness H&P Date: 03/27/23 Chief Complaint: IUP at 39-6/7 weeks, history of 1 desires TOLAC 28-year-old at 39-6/7 weeks that presents to labor and delivery for induction of labor. Patient had been receiving routine care until proximally 27 weeks when she stopped coming for appointment. Patient recently showed up for an appointment last week at 38 weeks. Patient denied concerns since last appointment. Discussed induction of labor secondary to EDC approaching. On bloodwork this patient is a blood type of A+, rubella status immune, hepatitis B surface antigen negative, group beta strep was unknown if she does not seen in the office from 27 weeks forward. RPR was nonreactive. 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 #1, normal spontaneous vaginal delivery, spina bifida congenital heart disease defect, infant #2, primary low transverse section secondary to breech presentation #3, current Review of Systems Constitutional: Denies chills, Denies fatigue, Denies fever Ears, nose, mouth and throat: Denies headache Cardiovascular: Reports leg edema Respiratory: Denies dyspnea Gastrointestinal: Denies constipation, Denies diarrhea, Denies nausea, Denies vomiting Genitourinary: Reports Past Medical History Past Medical History: Asthma Additional Past Medical History / Comment(s): head injury -2013 History of Any Multi-Drug Resistant Organisms: None Reported Past Surgical History: No Surgical Hx Reported Past Anesthesia/Blood Transfusion Reactions: No Reported Reaction Additional Past Anesthesia/Blood Transfusion Reaction / Comment(s): Sister has problem where local anesthetics don't work. Past Psychological History: Anxiety, Bipolar, Depression, Panic Disorder Smoking Status: Vaper Past Alcohol Use History: Occasional Additional Past Alcohol Use History / Comment(s): Smoked age 17, quit during 1st , resumed and currently quit 06/2018. No current alcohol use. Past Drug Use History: Marijuana Additional Drug Use History / Comment(s): occasional marijuana use - Past Family History Mother Family Medical History: GERD/Reflux Medications and Allergies Home Medications Medication Instructions Recorded Confirmed Type Miw-Rlmr-Nsofs Acid 1 cap PO DAILY 07/10/18 03/27/23 History [-U Capsule (formulary)] Allergies Allergy/AdvReac Type Severity Reaction Status Date / Time No Known Allergies Allergy Verified 01/19/23 17:00 Exam Osteopathic Statement: *. No significant issues noted on an osteopathic st ructural exam other than those noted in the History and Physical/Consult. Vital Signs Temp Pulse Resp BP Pulse Ox 03/27/23 06:12 95.3 F L 93 16 110/71 98 Intake and Output 03/26/23 03/27/23 03/27/23 22:59 06:59 14:59 Other: Weight 73.936 kg Targeted physical exam is performed in this date and novelty maker a well-nourished well-developed female in no acute distress, breathing is noted to be nonlabored, heart has a regular rate and rhythm, abdomen is gravid and appropriate for gestational age, heart tones are noted to be category 1, on cervical exam she is 2-3//-3 vertex presentation. Amniotomy is performed and clear fluid was obtained. Results Result Diagrams: 03/27/23 06:30 Abnormal Lab Results - Last 24 Hours (Table) 03/27/23 Range/Units 06:30 RBC 3.75 L (3.80-5.40) m/uL Plt Count 147 L (150-450) k/uL Assessment and Plan (1) H/O section Current Visit: Yes Status: Acute Code(s): Z98.891 - HISTORY OF UTERINE SCAR FROM PREVIOUS SURGERY SNOMED Code(s): 701810783 (2) Failed trial of labor following previous , antepartum Current Visit: Yes Status: Acute Code(s): O66.41 - FAILED ATTEMPT VAGINAL AFTER PREVIOUS DEL SNOMED Code(s): 30157018 (3) Term Current Visit: No Status: Acute Code(s): Z34.90 - ENCNTR FOR SUPRVSN OF NORMAL , UNSP, UNSP TRIMESTER SNOMED Code(s): 77113632 Plan: 28-year-old at 39-6/7 weeks presents for induction of labor. Patient does have a prior history of a primary secondary to breech presentation and desires trial of labor after . Risks are reviewed and patient states understanding. Patient is counseled on options of analgesia including nitrous, Stadol, epidural. Patient states she would like an epidural when appropriate. Pitocin induction of labor is begun per hospital protocol. Anticipate spontaneous vaginal delivery.
--- NOTE | 2023-03-28 08:07 | P.DS ---
Providers Date of admission: 03/27/23 06:08 Expected date of discharge: 03/28/23 Attending physician: Madison Mcnulty Primary care physician: Stated None - Discharge Diagnosis(es) (1) H/O section Current Visit: Yes Status: Acute (2) Failed trial of labor following previous , antepartum Current Visit: Yes Status: Acute (3) Term Current Visit: No Status: Acute (4) Status post vaginal delivery Current Visit: Yes Status: Acute (5) Obstetrical laceration, first degree Current Visit: Yes Status: Acute Hospital Course: Set 28-year-old 3 para 2000 that presented to labor and delivery yesterday at 39-6/7 weeks for scheduled induction of labor. Patient had been receiving limited care. Patient was seen through December then disappeared into the last week. Patient was counseled on induction of labor secondary to limited care and her EDC approaching. Patient has a history of a primary with her second secondary to breech presentation. Patient did desire trial of labor after as she had a vaginal delivery with her first . That is as it had a congenital heart condition and spina bifida. Patient did fail her 1 hour gestational diabetes screen and did not complete her 3 hour at 27 weeks. Patient was admitted to labor and delivery and Pitocin induction of labor was begun per hospital protocol. Patient underwent amniotomy clear fluid was obtained. Patient labor eventually becoming uncomfortable and requesting epidural placement. Epidural was placed without difficulty by the anesthesia department. Patient progressed to complete began pushing and had a normal sp ontaneous vaginal delivery of a viable female at 1439, weight of 7 lbs. 0 oz. Apgars of 8 and 9 at one and 5 minutes respectively. Patient did sustain a first-degree vaginal laceration during delivery which was repaired in usual fashion with 3-0 Rapide. Patient's course has been uneventful. This day #1 she is ambulating and voiding without difficulty. She is tolerating a regular diet without nausea or vomiting she states her pain is well-controlled. She would like discharge home later today. Patient Condition at Discharge: Good Plan - Discharge Summary New Discharge Prescriptions: No Action Ruo-Avok-Rtaie Acid [-U Capsule (formulary)] 1 cap PO DAILY Discharge Medication List Llf-Loqm-[id number] Acid [-U Capsule (formulary)] 1 cap PO DAILY 07/10/18 [History] Follow up Appointment(s)/Referral(s): Madison Mcnulty DO [Doctor of Osteopathic Medicine] - 6 Weeks Patient Instructions/Handouts: Vaginal Delivery (GEN), Vaginal Delivery (DC) Activity/Diet/Wound Care/Special Instructions: No tub baths or intercourse until 6 weeks . [id number] ibuprofen 600 mg or 3 tablets every 6 hours as needed for pain Patient is to call the office and be seen in 6 weeks for routine visit. Discharge Disposition: HOME SELF-CARE
[2023-03-28] MEDS: SENNOSIDES-DOCUSATE SODIUM 1 EACH TAB PO SCH (09:08)
[2023-03-28 12:52] VITALS: BP 108/75; PULSE 80; TEMP 98
== END 2023-03-28 16:18 | disposition home or self-care (01) | DRG 560 ==
LOC: 4FBP 06:08
PROVIDERS: ADMIT Obstetrics & Gynecology Obstetrics; ATTEND Obstetrics & Gynecology Obstetrics
PROC: 3E033VJ Introduction of Other Hormone into Peripheral Vein, Percutaneous Approach (ICD-10-PCS; principal; 2023-03-27)
PROC: 10E0XZZ Delivery of Products of Conception, External Approach (ICD-10-PCS; 2023-03-27)
PROC: 0HQ9XZZ Repair Perineum Skin, External Approach (ICD-10-PCS; 2023-03-27)
PROC: 10907ZC Drainage of Amniotic Fluid, Therapeutic from Products of Conception, Via Natural or Artificial Opening (ICD-10-PCS; 2023-03-27)
PROC: 3E0R3BZ Introduction of Anesthetic Agent into Spinal Canal, Percutaneous Approach (ICD-10-PCS; 2023-03-27)
DX: O34.211 Maternal care for low transverse scar from previous cesarean delivery (principal); Z37.0 Single live birth; O70.0 First degree perineal laceration during delivery; Z3A.39 39 weeks gestation of pregnancy; Z87.891 Personal history of nicotine dependence; Z87.828 Personal history of other (healed) physical injury and trauma; Z87.59 Personal history of other complications of pregnancy, childbirth and the puerperium
CPT/HCPCS: 80306; 85025; 86850; 86900; 86901

== ENCOUNTER 2023-09-09 14:38 | Inpatient (IN) | payer MEDICAID, OTHER ==
[2023-09-09 15:41] LABS: Basophils % (A) 0 %; Eosinophils # (A) 0.1 k/uL (0-0.7); Eosinophils % (A) 1 %; HCT 44.3 % (34.0-46.0); HGB 14.6 gm/dL (11.4-16.0); Lymphocytes # (A) 0.5 k/uL (1.0-4.8); Lymphocytes % (A) 4 %; MCH 29.7 pg (25.0-35.0); MCHC 32.9 g/dL (31.0-37.0); MCV 90.1 fL (80.0-100.0); Mean Platelet Volume 8.2; Monocytes # (A) 0.2 k/uL (0-1.0); Monocytes % (A) 1 %; Neutrophils # (A) 11.2 k/uL (1.3-7.7); Neutrophils % (A) 94 %; Platelet Count 226 k/uL (150-450); RBC 4.92 m/uL (3.80-5.40); RDW 13.7 % (11.5-15.5); WBC 11.9 k/uL (3.8-10.6)
[2023-09-09 15:51] LABS: ALT 20 U/L (4-34); AST 24 U/L (14-36); African American GFR (CKD) >90 (>60 ml/min/1.73 sqM); Alkaline Phosphatase 115 U/L (38-126); Anion Gap 8 mmol/L; Blood Urea Nitrogen 16 mg/dL (7-17); Calcium 9.4 mg/dL (8.4-10.2); Carbon Dioxide 21 mmol/L (22-30); Chloride 108 mmol/L (98-107); Glucose 132 mg/dL (74-99); Non-African American GFR(CKD) >90 (>60 ml/min/1.73 sqM); Sodium 137 mmol/L (137-145); Total Bilirubin 0.9 mg/dL (0.2-1.3); Total Protein 7.9 g/dL (6.3-8.2)
--- NOTE | 2023-09-09 16:29 | ED ---
General Adult HPI - General Chief complaint: Overdose Stated complaint: Mental health/Overdose Time Seen by Provider: 09/09/23 16:11 Source: patient, RN notes reviewed Mode of arrival: ambulatory Limitations: no limitations - History of Present Illness Initial comments: Patient is a 20-year-old female presenting to the emergency department with concerns for mental health evaluation. Patient feels depressed. Patient did take around 20 of her 10 mg Prozac 2 to 3 hours ago. No homicidal thoughts. No hallucinations. No alcohol or street drug use. No physical complaints. Patient is having stressors and problems with her . - Related Data Home Medications Medication Instructions Recorded Confirmed No Known Home Medications 09/09/23 09/09/23 Allergies Allergy/AdvReac Type Severity Reaction Status Date / Time No Known Allergies Allergy Verified 09/09/23 17:35 Review of Systems ROS Statement: Those systems with pertinent positive or pertinent negative responses have been documented in the HPI. ROS Other: All systems not noted in ROS Statement are negative. Constitutional: Denies: fever Eyes: Denies: eye pain ENT: Denies: ear pain Respiratory: Denies: cough Cardiovascular: Denies: chest pain Endocrine: Denies: fatigue Gastrointestinal: Denies: abdominal pain Genitourinary: Denies: dysuria Musculoskeletal: Denies: back pain Psychiatric: Reports: as per HPI, depression. Denies: auditory hallucinations, visual hallucinations, homicidal thoughts Past Medical History Past Medical History: Asthma Additional Past Medical History / Comment(s): head injury -2013 History of Any Multi-Drug Resistant Organisms: None Reported Past Surgical History: No Surgical Hx Reported Past Anesthesia/Blood Transfusion Reactions: No Reported Reaction Additional Past Anesthesia/Blood Transfusion Reaction / Comment(s): Sister has problem where local anesthetics don't work. Past Psychological History: Anxiety, Bipolar, Depression, Panic Disorder Smoking Status: Vaper Past Alcohol Use History: Occasional Past Drug Use History: Marijuana - Past Family History Mother Family Medical History: GERD/Reflux General Exam Limitations: no limitations General appearance: alert, in no apparent distress Head exam: Present: normocephalic Eye exam: Present: normal appearance Neck exam: Present: normal inspection Respiratory exam: Present: normal lung sounds bilaterally Cardiovascular Exam: Present: regular rate, normal rhythm GI/Abdominal exam: Present: soft. Absent: tenderness Extremities exam: Present: normal inspection Neurological exam: Present: alert Psychiatric exam: Present: flat affect Skin exam: Present: normal color Course Vital Signs 09/09/23 09/09/23 14:47 16:42 Temperature 98.6 F 98.1 F Pulse Rate 118 H 101 H Respiratory 16 18 Rate Blood Pressure 123/84 112/77 O2 Sat by Pulse 98 99 Oximetry EKG Findings - EKG Results: EKG: interpreted by ERMD, sinus rhythm, normal axis, normal QRS, normal ST/T EKG shows: tachycardia Medical Decision Making - Medical Decision Making EM macro was pt. sent in by a medical professional or institution (, PA, SCUTCHER TENDER, urgent care, hospital, or fdc...) When possible be specific @ -No Did you speak to anyone other than the patient for history (EMS, parent, family, police, friend...)? What history was obtained from this source @ -No Did you review nursing and triage notes (agree or disagree)? Why? @ -I reviewed and agree with nursing and triage notes Were old charts reviewed (outside hosp., previous admission, EMS record, old EKG, old radiological studies, urgent care reports/EKG's, fdc records)? Report findings @ -No old charts were reviewed Differential Diagnosis (chest pain, altered mental status, abdominal pain women, abdominal pain men, vaginal bleeding, weakness, fever, dyspnea, syncope, headache, dizziness, GI bleed, back pain, seizure, CVA, palpatations, mental health, musculoskeletal)? @ -Differential Mental Health Depression, anxiety, bipolar, psychosis, schizophrenia, borderline personality, situational depression, adjustment disorder, behavioral disorder, brain tumor, malingering, substance abuse, encephalopathy, medication reaction, dementia, hypothyroidism, degenerative neurologic disorder, lupus.... This is not meant to be all-inclusive list EKG interpreted by me (3pts min.). @ -As above X-rays interpreted by me (1pt min.). @ -None done CT interpreted by me (1pt min.). @ -None done U/S interpreted by me (1pt. min.). @ -None done What testing was considered but not performed or refused? (CT, X-rays, U/S, labs)? Why? @ -None What meds were considered but not given or refused? Why? @ -None Did you discuss the management of the patient with other professionals (professionals i.e. , PA, SCUTCHER TENDER, lab, RT, psych nurse, social media marketing analyst, metal grinder, teacher, trust officer, bottle caser)? Give summary @ -Mental health worker with plans for psychiatric admission Was smoking cessation discussed for >3mins.? @ -No Was critical care preformed (if so, how long)? @ -31 minutes critical care Were there social determinants of health that impacted care today? How? (Homelessness, low income, unemployed, alcoholism, drug addiction, transportation, low edu. Level, literacy, decrease access to med. care, assisted, rehab)? @ -No Was there de-escalation of care discussed even if they declined (Discuss DNR or withdrawal of care, Hospice)? DNR status @ -No What co-morbidities impacted this encounter? (DM, HTN, Smoking, COPD, CAD, Cancer, CVA, ARF, Chemo, Hep., AIDS, mental health diagnosis, sleep apnea, morbid obesity)? @ -None Was patient admitted / discharged? Hospital course, mention meds given and route, prescriptions, significant lab abnormalities, going to OR and other pertinent info. @ -Patient presents with depression suicidal ideation and attempt. Positive clinical certificate completed. Patient will be admitted or transferred for psychiatric care Undiagnosed new problem with uncertain prognosis? @ -No Drug Therapy requiring intensive monitoring for toxicity (Heparin, Nitro, Insulin, Cardizem)? @ -No Were any procedures done? @ -No Diagnosis/symptom? @ -Depression, suicidal ideation, suicide attempt Acute, or Chronic, or Acute on Chronic? @ -Acute, acute, acute Uncomplicated (without systemic symptoms) or Complicated (systemic symptoms)? @ -Default Side effects of treatment? @ -No Exacerbation, Progression, or Severe Exacerbation? @ -No Poses a threat to life or bodily function? How? (Chest pain, USA, PA, pneumonia, PE, COPD, DKA, ARF, appy, cholecystitis, CVA, Diverticulitis, Homicidal, Suicidal, threat to staff... and all critical care pts) @ -Threat to with overdose - Lab Data Result diagrams: 09/09/23 15:29 09/09/23 15:29 Lab Results 09/09/23 09/09/23 09/09/23 Range/Units 15:29 15:29 15:29 WBC 11.9 H (3.8-10.6) k/uL RBC 4.92 (3.80-5.40) m/uL Hgb 14.6 (11.4-16.0) gm/dL Hct 44.3 (34.0-46.0) % MCV 90.1 (80.0-100.0) fL MCH 29.7 (25.0-35.0) pg MCHC 32.9 (31.0-37.0) g/dL RDW 13.7 (11.5-15.5) % Plt Count 226 (150-450) k/uL MPV 8.2 Neutrophils % 94 % Lymphocytes % 4 % Monocytes % 1 % Eosinophils % 1 % Basophils % 0 % Neutrophils # 11.2 H (1.3-7.7) k/uL Lymphocytes # 0.5 L (1.0-4.8) k/uL Monocytes # 0.2 (0-1.0) k/uL Eosinophils # 0.1 (0-0.7) k/uL Basophils # 0.0 (0-0.2) k/uL Sodium 137 (137-145) mmol/L Potassium 4.0 (3.5-5.1) mmol/L Chloride 108 H (98-107) mmol/L Carbon Dioxide 21 L (22-30) mmol/L Anion Gap 8 mmol/L BUN 16 (7-17) mg/dL Creatinine 0.56 (0.52-1.04) mg/dL Est GFR (CKD-EPI)AfAm >90 (>60 ml/min/1.73 sqM) Est GFR (CKD-EPI)NonAf >90 (>60 ml/min/1.73 sqM) Glucose 132 H (74-99) mg/dL Calcium 9.4 (8.4-10.2) mg/dL Total Bilirubin 0.9 (0.2-1.3) mg/dL AST 24 (14-36) U/L ALT 20 (4-34) U/L Alkaline Phosphatase 115 (38-126) U/L Total Protein 7.9 (6.3-8.2) g/dL Albumin 5.0 (3.5-5.0) g/dL Urine HCG, Qual (Not Detectd) Salicylates mg/dL Urine Opiates Screen Not Detected (NotDetected) Ur Oxycodone Screen Not Detected (NotDetected) Urine Methadone Screen Not Detected (NotDetected) Acetaminophen ug/mL Ur Barbiturates Screen Not Detected (NotDetected) U Tricyclic Antidepress Not Detected (NotDetected) Ur Phencyclidine Scrn Not Detected (NotDetected) Ur Amphetamines Screen Not Detected (NotDetected) U Methamphetamines Scrn Not Detected (NotDetected) U Benzodiazepines Scrn Not Detected (NotDetected) Urine Cocaine Screen Not Detected (NotDetected) U Marijuana (THC) Screen Not Detected (NotDetected) 09/09/23 09/09/23 Range/Units 15:29 15:29 WBC (3.8-10.6) k/uL RBC (3.80-5.40) m/uL Hgb (11.4-16.0) gm/dL Hct (34.0-46.0) % MCV (80.0-100.0) fL MCH (25.0-35.0) pg MCHC (31.0-37.0) g/dL RDW (11.5-15.5) % Plt Count (150-450) k/uL MPV Neutrophils % % Lymphocytes % % Monocytes % % Eosinophils % % Basophils % % Neutrophils # (1.3-7.7) k/uL Lymphocytes # (1.0-4.8) k/uL Monocytes # (0-1.0) k/uL Eosinophils # (0-0.7) k/uL Basophils # (0-0.2) k/uL Sodium (137-145) mmol/L Potassium (3.5-5.1) mmol/L Chloride (98-107) mmol/L Carbon Dioxide (22-30) mmol/L Anion Gap mmol/L BUN (7-17) mg/dL Creatinine (0.52-1.04) mg/dL Est GFR (CKD-EPI)AfAm (>60 ml/min/1.73 sqM) Est GFR (CKD-EPI)NonAf (>60 ml/min/1.73 sqM) Glucose (74-99) mg/dL Calcium (8.4-10.2) mg/dL Total Bilirubin (0.2-1.3) mg/dL AST (14-36) U/L ALT (4-34) U/L Alkaline Phosphatase (38-126) U/L Total Protein (6.3-8.2) g/dL Albumin (3.5-5.0) g/dL Urine HCG, Qual Not Detected (Not Detectd) Salicylates <1.0 mg/dL Urine Opiates Screen (NotDetected) Ur Oxycodone Screen (NotDetected) Urine Methadone Screen (NotDetected) Acetaminophen <10.0 ug/mL Ur Barbiturates Screen (NotDetected) U Tricyclic Antidepress (NotDetected) Ur Phencyclidine Scrn (NotDetected) Ur Amphetamines Screen (NotDetected) U Methamphetamines Scrn (NotDetected) U Benzodiazepines Scrn (NotDetected) Urine Cocaine Screen (NotDetected) U Marijuana (THC) Screen (NotDetected) Disposition Clinical Impression: Suicidal ideation, Depression, Suicide attempt by substance overdose Disposition: TRANSFER TO PSYCH HOSP/UNIT Is patient prescribed a controlled substance at d/c from ED?: No Referrals: None,Stated [Primary Care Provider] - 1-2 days Time of Disposition: 18:46
[2023-09-09 16:32] LABS: Amphetamine Screen,Urine Not Detected (NotDetected); Barbiturate Screen,Urine Not Detected (NotDetected); Benzodiazepines Screen,Urine Not Detected (NotDetected); Cocaine Screen,Urine Not Detected (NotDetected); Methadone Screen, Urine Not Detected (NotDetected); Opiate Screen,Urine Not Detected (NotDetected); Oxycodone Screen, Urine Not Detected (NotDetected); Phencyclidine Screen,Urine Not Detected (NotDetected); Tricyclic Antidepressant,Urine Not Detected (NotDetected); Urn Cannabinoid Scrn Not Detected (NotDetected)
[2023-09-09 16:59] LABS: Acetaminophen <10.0 ug/mL; Salicylate <1.0 mg/dL
[2023-09-09] MEDS: NICOTINE 14MG/24HR PATCH TRANSDERM STA (22:41)
[2023-09-09] MEDS: ACETAMINOPHEN TAB 500 MG TAB PO STA (22:41)
[2023-09-10] MEDS ORDERED: MAG HYDROX/AL HYDROX/SIMETH 355 ML BOTTLE PO PRN (17:50)
[2023-09-10] MEDS: hydrOXYzine HCL 25 MG TAB PO PRN (18:45)
[2023-09-10] MEDS: IBUPROFEN 600 MG TAB PO PRN (18:46)
[2023-09-10 21:37] LABS: Appearance,Urine Cloudy (Clear); Bilirubin,Urine Negative (Negative); Blood,Urine Negative (Negative); Calcium Oxalate Crystals,Urine Few /hpf; Color,Urine Yellow; Glucose,Urine (UA) Negative (Negative); Ketones,Urine Negative (Negative); Leukocyte Esterase,Urine Trace (Negative); Mucus,Urine Many /hpf; Nitrite,Urine Negative (Negative); Protein,Urine 1+ (Negative); RBC,Urine 1 /hpf (0-5); Specific Gravity,Urine 1.041 (1.001-1.035); Squamous Epithelial Cell,Urine 11 /hpf (0-4); WBC,Urine <1 /hpf (0-5)
[2023-09-10] MEDS: traZODone HCL 50 MG TAB PO PRN (21:39)
--- NOTE | 2023-09-10 23:24 | P.CONS ---
History of Present Illness - Reason for Consult Consult date: 09/10/23 - History of Present Illness The patient is a 28-year-old female with a PMH of asthma who had presented to the emergency room with complaints of depression and suicidal ideation. The patient notes that she has been struggling with her home life due to having multiple kids and struggling with her relationship with her . She reports vaping and being a social drinker. Does report mild right bottom molar tooth pain over the past several days but states that she does not have the insurance to go see a dentist. Denies fever, chills, chest pain, shortness of breath, nausea, vomiting, abdominal pain, diarrhea, urinary complaints. Review of systems: Pertinent positives and negatives as discussed in HPI, a complete review of systems was performed and all other systems are negative. Physical examination: General: non toxic, no distress, appears at stated age, overweight Derm: no unusual rashes/lesions, no unusual ecchymoses, warm, dry Head: atraumatic, normocephalic, symmetric Eyes: EOMI, no lid lag, anicteric sclera ENT: Nose and ears atraumatic, no thrush, no pharyngeal erythema Neck: trachea midline, supple Mouth: no lip lesion, mucus membranes moist, poor dentition Cardiovascular: S1S2 reg, no murmur, no edema Lungs: CTA bilateral, no rhonchi, no rales , no accessory muscle use Abdominal: soft, nontender to palpation, no guarding Ext: no gross muscle atrophy, no contractures, Neuro: No gross focal neuro deficits noted Psych: Alert, oriented, appropriate affect Assessment: Dental abscess without regional lymphadenopathy and minimal tenderness, not warranting antibiotics at this time Tobacco abuse Depression and suicidal ideation Imaging: EKG in the emergency room revealed sinus tachycardia at [address]/T wave changes noted as reviewed by me. Data Review: Laboratory evaluation was remarkable for leukocytosis of 11.9, chloride 108, CO2 21, glucose 132, with a negative urine toxicology Plan: Advised patient to improve dental hygiene and see a dentist as an outpatient Advised on importance of cessation of tobacco use Defer management of depression and suicidal ideation to the primary psychiatry service Thank you for allowing us to participate in the care of this patient. We will follow peripherally. Do not hesitate to contact us with questions. Someone can be reached from the [facility] hospitalist group at all hours of the day at [phone]. Past Medical History Past Medical History: Asthma Additional Past Medical History / Comment(s): head injury -2013 History of Any Multi-Drug Resistant Organisms: None Reported Past Surgical History: Section Past Anesthesia/Blood Transfusion Reactions: No Reported Reaction Additional Past Anesthesia/Blood Transfusion Reaction / Comm: Sister has problem where local anesthetics don't work. Past Psychological History: Anxiety, Bipolar, Depression, Panic Disorder Smoking Status: Vaper Past Alcohol Use History: Occasional Additional Past Alcohol Use History / Comment(s): Smoked age 17, quit during 1st , resumed and currently quit 06/2018. No current alcohol use. Past Drug Use History: Marijuana Additional Drug Use History / Comment(s): occasional marijuana use - Past Family History Mother Family Medical History: GERD/Reflux Father Family Medical History: Hypertension Additional Family Medical History / Comment(s): bipolar Medications and Allergies Home Medications Medication Instructions Recorded Confirmed Type No Known Home Medications 09/09/23 09/09/23 History Allergies Allergy/AdvReac Type Severity Reaction Status Date / Time No Known Allergies Allergy Verified 09/09/23 17:35 Physical Exam Vitals: Vital Signs Temp Pulse Pulse Resp BP BP Pulse Ox 09/10/23 18:51 97.7 F 87 16 112/53 98 09/10/23 11:35 97.8 F 91 16 98/65 99 09/10/23 06:16 77 16 95/63 99 Intake and Output 09/10/23 09/10/23 09/11/23 14:59 22:59 06:59 Other: Weight 68.084 kg Results CBC & Chem 7: 09/09/23 15:29 09/09/23 15:29 Labs: Abnormal Lab Results - Last 24 Hours (Table) 09/10/23 Range/Units 21:00 Urine Appearance Cloudy H (Clear) Ur Specific [place] 1.041 H (1.001-1.035) Urine Protein 1+ H (Negative) Ur Leukocyte Esterase Trace H (Negative) Ur Squamous Epith Cells 11 H (0-4) /hpf Calcium Oxalate Crystal Few H (None) /hpf Urine Mucus Many H (None) /hpf
[2023-09-11] MEDS: NICOTINE 14MG/24HR PATCH TRANSDERM SCH (08:11)
[2023-09-11] MEDS: ACETAMINOPHEN TAB 325 MG TAB PO PRN (10:32)
--- NOTE | 2023-09-11 10:34 | P.HP ---
Psychiatric H&P - . H&P Date: 09/11/23 History & Physical: Allergies Allergy/AdvReac Type Severity Reaction Status Date / Time No Known Allergies Allergy Verified 09/09/23 17:35 Vital Signs Temp 97.4 F L 09/11/23 06:59 Pulse 70 09/11/23 06:59 Resp 18 09/11/23 06:59 BP 98/53 09/11/23 06:59 Pulse Ox 99 09/11/23 06:59 FiO2 Intake & Output 09/10/23 09/11/23 09/11/23 18:59 06:59 18:59 Weight 68.084 kg Laboratory Last Values WBC 11.9 k/uL (3.8-10.6) H 09/09/23 15:29 RBC 4.92 m/uL (3.80-5.40) 09/09/23 15:29 Hgb 14.6 gm/dL (11.4-16.0) 09/09/23 15:29 Hct 44.3 % (34.0-46.0) 09/09/23 15:29 MCV 90.1 fL (80.0-100.0) 09/09/23 15:29 MCH 29.7 pg (25.0-35.0) 09/09/23 15:29 MCHC 32.9 g/dL (31.0-37.0) 09/09/23 15:29 RDW 13.7 % (11.5-15.5) 09/09/23 15:29 Plt Count 226 k/uL (150-450) 09/09/23 15:29 MPV 8.2 09/09/23 15:29 Neutrophils % 94 % 09/09/23 15:29 Lymphocytes % 4 % 09/09/23 15:29 Monocytes % 1 % 09/09/23 15:29 Eosinophils % 1 % 09/09/23 15:29 Basophils % 0 % 09/09/23 15:29 Neutrophils # 11.2 k/uL (1.3-7.7) H 09/09/23 15:29 Lymphocytes # 0.5 k/uL (1.0-4.8) L 09/09/23 15:29 Monocytes # 0.2 k/uL (0-1.0) 09/09/23 15:29 Eosinophils # 0.1 k/uL (0-0.7) 09/09/23 15:29 Basophils # 0.0 k/uL (0-0.2) 09/09/23 15:29 Sodium 137 mmol/L (137-145) 09/09/23 15:29 Potassium 4.0 mmol/L (3.5-5.1) 09/09/23 15:29 Chloride 108 mmol/L (98-107) H 09/09/23 15:29 Carbon Dioxide 21 mmol/L (22-30) L 09/09/23 15:29 Anion Gap 8 mmol/L 09/09/23 15:29 BUN 16 mg/dL (7-17) 09/09/23 15:29 Creatinine 0.56 mg/dL (0.52-1.04) 09/09/23 15:29 Est GFR (CKD-EPI)AfAm >90 (>60 ml/min/1.73 sqM) 09/09/23 15:29 Est GFR (CKD-EPI)NonAf >90 (>60 ml/min/1.73 sqM) 09/09/23 15:29 Glucose 132 mg/dL (74-99) H 09/09/23 15:29 Calcium 9.4 mg/dL (8.4-10.2) 09/09/23 15:29 Total Bilirubin 0.9 mg/dL (0.2-1.3) 09/09/23 15:29 AST 24 U/L (14-36) 09/09/23 15:29 ALT 20 U/L (4-34) 09/09/23 15:29 Alkaline Phosphatase 115 U/L (38-126) 09/09/23 15:29 Total Protein 7.9 g/dL (6.3-8.2) 09/09/23 15:29 Albumin 5.0 g/dL (3.5-5.0) 09/09/23 15:29 Urine Color Yellow 09/10/23 21:00 Urine Appearance Cloudy (Clear) H 09/10/23 21:00 Urine pH 6.0 (5.0-8.0) 09/10/23 21:00 Ur Specific [place] 1.041 (1.001-1.035) H 09/10/23 21:00 Urine Protein 1+ (Negative) H 09/10/23 21:00 Urine Glucose (UA) Negative (Negative) 09/10/23 21:00 Urine Ketones Negative (Negative) 09/10/23 21:00 Urine Blood Negative (Negative) 09/10/23 21:00 Urine Nitrite Negative (Negative) 09/10/23 21:00 Urine Bilirubin Negative (Negative) 09/10/23 21:00 Urine Urobilinogen 2.0 mg/dL (<2.0) 09/10/23 21:00 Ur Leukocyte Esterase Trace (Negative) H 09/10/23 21:00 Urine RBC 1 /hpf (0-5) 09/10/23 21:00 Urine WBC <1 /hpf (0-5) 09/10/23 21:00 Ur Squamous Epith Cells 11 /hpf (0-4) H 09/10/23 21:00 Calcium Oxalate Crystal Few /hpf (None) H 09/10/23 21:00 Urine Mucus Many /hpf (None) H 09/10/23 21:00 Urine HCG, Qual Not Detected (Not Detectd) 09/09/23 15:29 Salicylates <1.0 mg/dL 09/09/23 15:29 Urine Opiates Screen Not Detected (NotDetected) 09/09/23 15:29 Ur Oxycodone Screen Not Detected (NotDetected) 09/09/23 15:29 Urine Methadone Screen Not Detected (NotDetected) 09/09/23 15:29 Acetaminophen <10.0 ug/mL 09/09/23 15:29 Ur Barbiturates Screen Not Detected (NotDetected) 09/09/23 15:29 U Tricyclic Antidepress Not Detected (NotDetected) 09/09/23 15:29 Ur Phencyclidine Scrn Not Detected (NotDetected) 09/09/23 15:29 Ur Amphetamines Screen Not Detected (NotDetected) 09/09/23 15:29 U Methamphetamines Scrn Not Detected (NotDetected) 09/09/23 15:29 U Benzodiazepines Scrn Not Detected (NotDetected) 09/09/23 15:29 Urine Cocaine Screen Not Detected (NotDetected) 09/09/23 15:29 U Marijuana (THC) Screen Not Detected (NotDetected) 09/09/23 15:29 SARS-CoV-2 (PCR) Not Detected (Not Detectd) 09/10/23 15:58 09/11/23 10:34 Psychiatric Evaluation Identifying Data: Ms. Montalvo is 28 years old, , white female, who lives in [place], [place] in an apartment with her and two children age 4 and 5 months old. Chief Complaint: I took 20 pills of Prozac History of Psychiatric Illness- The patient noted that she started seeking psychiatric help around age 15. She was admitted to [facility] after a suicidal plan of jumping [place] the [place]. She sought out-pt treatment and was readmitted in 2017 to this hospital for overdose of pills. The patient noted that she went to out-pt treatment after the discharge. Current admission her 3rd admission. The patient noted that she has had sporadic out-pt treatment. The patient was last in out-pt treatment 3 years ago. She started getting her Prozac from her OB&Gy physician. 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 She has been depressed since the of her last child. She continued taking Prozac till two months ago. She was taking Prozac 10 mg daily. She indicated that Prozac was not helping her. She had done fine on Prozac 10 mg prescribed by her OB&Gy physician. Few months after the of second child. Her physician stop seeing her because of change in insurance. There was no change in dose was made in medication because lack of follow-up. The patient has had no side effects from Prozac. She denied being suicidal on Prozac. Her current symptoms are sadness, rage, anxiety, guilt feelings, sleep impairment, hopelessness and suicidal thoughts. The patient is not having suicidal ideation, thoughts or plans now. The patient noted that she took overdose of Prozac in a rage after an argument with her . Current psychiatric History Past Psychiatric History: As stated above. Past Medication History; as stated above. Leading questions: The patient admitted to Depression and Anxiety. Denied SI or HI. Denied symptoms consistent with psychosis Drugs and alcohol history: The patient denied. She used marijuana in the past. Tobacco use: Vapes nicotine. Past Medical history: Asthma Family History of Psychiatric Disorder: Her father is Bipolar. He goes for out- pt treatment. Details unknown. Sister has Bipolar, as per patient. She does not seek treatment. Her paternal uncle committed suicide. Details not known. Social History and Family History: The patient was born and raised in [place], [place]. She grew-up with 6 siblings. She got her GED last Year. 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 Has two children. OTC: None. Allergies: None Objective: MSE: Alert and attentive. Orientation times three Dressed and Groomed: Appropriately. Pleasant and cooperative. Psychomotor Activity: Normal. Speech: Normal in tone, quality, and quantity. Mood: Depressed and anxious. Affect: Consistent with mood. SI or HI: None. Perceptual disturbance: None. Thought Content: No paranoia or other delusional thinking noted. Thought Process: Normal. Cognition: Intact Judgment and Insight: Poor. AIMS: Normal Labs: None available. Diagnosis: Major depressive Disorder, severe, recurrent. H/O Post- Depression. Plan and Recommendations: Continue current Medications. Monitor MS and side effects of medications and adjust medications accordingly. Provide supportive psychotherapy and psychoeducation. The patient provided psychoeducation. Smoke cessation therapy. The patient to attend graham Milieu. Medication Consent with explanation of risk/benefits and side effects: Explained and obtained.
[2023-09-11 14:23] LABS: ALT 16 U/L (4-34); AST 26 U/L (14-36); Albumin 4.1 g/dL (3.5-5.0); Alkaline Phosphatase 77 U/L (38-126); Bilirubin, Delta 0.4 mg/dL (0.0-0.2); Bilirubin,Unconjugated 0.2 mg/dL (0.0-1.1); Total Bilirubin 0.6 mg/dL (0.2-1.3); Total Protein 6.6 g/dL (6.3-8.2)
[2023-09-11 21:41] LABS: LDL Cholesterol,Calculated 92.5 mg/dL (0.0-131.0)
[2023-09-12] MEDS: FLUoxetine HCL 20 MG CAP PO SCH (08:34)
[2023-09-12] MEDS: hydrOXYzine HCL 10 MG TAB PO SCH (15:19)
--- NOTE | 2023-09-12 15:26 | P.PN ---
Progress Note - Text Progress Note Date: 09/12/23 Follow-up Mediation Review Chief Complaint: I am feeling good Subjective: The patient that her mood is improving. She is not feeling as depressed as she was feeling at the time of the admission. She feels medication is helping her. She feels rested and her frustration and anger has subsided. She has been talking to her . As per patient, he wants her back home. She stated that he is supportive. She also talked about their issues and possible separation or divorce. The patient noted that she is preparing herself for these issues. The patient noted that she will move to her fathers house, if something of that nature occurs. The patient was provided support and reass urance. The patient has been attending the groups. The participation good. The interaction with staff and peers is good. The patient is compliant with treatment recommendations. Leading questions: The patient admitted to Depression and Anxiety. Denied SI or HI. Denied symptoms consistent with psychosis Sleep and Appetite: Fair. Change in family/ living/job/financial/daily routine: No change. Change in medical condition: No change. Change in medications: No change. Side effects from Medications: None. Objective- MSE: Alert and attentive. Orientation times three. Dressed and Groomed: Appropriately. Pleasant and cooperative. Psychomotor Activity: Normal. Speech: Normal in tone, quality and quantity. Mood: Depressed and anxious. Affect: Consistent with mood. SI or HI: None. Perceptual disturbance: None. Thought Content: No paranoia or other delusional thinking noted. Thought Process: Normal. Cognition: Intact Judgment and Insight: Good AIMS: Normal. Labs: Reviewed and discussed with patient. Diagnosis: No change Plan and Recommendations: Continue current Medications. Monitor MS and side effects of medications and adjust medications accordingly. Provide supportive psychotherapy. The patient provided psychoeducation and advised The patient provided Substance abuse counseling. Smoke cessation therapy. The patient to attend graham activities. Medication Consent with explanation of risk/benefits and side effects: Explained and obtained.
[2023-09-12] MEDS: BENZOCAINE 20 % GEL 11.9 GM TUBE MM PRN (18:52)
--- NOTE | 2023-09-13 15:30 | P.PN ---
Progress Note - Text Progress Note Date: 09/13/23 Follow-up Mediation Review Chief Complaint: I am doing better Subjective: The patient noted that she is doing better than before. She has been talking to her . As per patient, he wants her to come her back and is supportive. Complaint since yesterday: No new complaints The patient has been attending the groups. The participation is good. The interaction with staff and peers is good. The patient is compliant with treatment recommendations. Leading questions: The patient admitted to Depression and Anxiety. Denied SI or HI. Denied symptoms consistent with psychosis Sleep and Appetite: Fair. Change in family/ living/job/financial/daily routine: No change. Change in medical condition: No change. Change in medications: No change. Side effects from Medications: None. Allergies: No change. Objective- MSE: Alert and attentive. Orientation times three. Dressed and Groomed: Appropriately. Pleasant and cooperative. Psychomotor Activity: Normal. Speech: Normal in tone, quality, and quantity. Mood: Improved. Affect: Appropriate. SI or HI: None. Perceptual disturbance: None. Thought Content: No paranoia or other delusional thinking noted. Thought Process: Normal. Cognition: Intact Judgment and Insight: Fair. AIMS: Normal. Labs: No new labs. Diagnosis: No change Plan and Recommendations: Continue current Medications. Monitor MS and side effects of medications and adjust medications accordingly. Provide supportive psychotherapy. The patient provided psychoeducation and advised The patient provided Substance abuse counseling. Smoke cessation therapy. The patient to attend graham activities. CBC with Diff, CMP, TSH, Lipid Profile, HbA1c, EKG, Medication Consent with explanation of risk/benefits and side effects: Explained and obtained.
[2023-09-14 06:37] VITALS: BP 95/54; PULSE 75; RESP 18; TEMP 97.7
[2023-09-14] MEDS: MAGNESIUM HYDROXIDE 2,400 MG/30 ML CUP PO PRN (12:27)
--- NOTE | 2023-09-14 23:49 | P.DS ---
Providers Date of admission: 09/10/23 17:34 Expected date of discharge: 09/14/23 Attending physician: Christiano Rogers MD Consults: 09/10/23 17:50 Consult Physician Routine Consulting Provider: Analilia Goodwin Consult Reason/Comments: H&P and medical management Do you want consulting provider notified?: Yes Primary care physician: Stated None - Discharge Diagnosis(es) (1) Major depressive disorder, recurrent severe without psychotic features Status: Acute Priority: High Hospital Course: Discharge Summary HPI: Identifying Data: Ms. Montalvo is 28 years old, , white female, who lives in [place], [place] in an apartment with her and two children age 4 and 5 months old. Chief Complaint: I took 20 pills of Prozac History of Psychiatric Illness- The patient noted that she started seeking psychiatric help around age 15. She was admitted to [facility] after a suicidal plan of jumping [place] the [place]. She sought out-pt treatment and was readmitted in 2017 to this hospital for overdose of pills. The patient noted that she went to out-pt treatment after the discharge. Current admission her 3rd admission. The patient noted that she has had sporadic out-pt treatment. The patient was last in out-pt treatment 3 years ago. She started getting her Prozac from her OB&Gy physician. 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 She has been depressed since the of her last child. She continued taking Proza c till two months ago. She was taking Prozac 10 mg daily. She indicated that Prozac was not helping her. She had done fine on Prozac 10 mg prescribed by her OB&Gy physician. Few months after the of second child. Her physician stop seeing her because of change in insurance. There was no change in dose was made in medication because lack of follow-up. The patient has had no side effects from Prozac. She denied being suicidal on Prozac. Her current symptoms are sadness, rage, anxiety, guilt feelings, sleep impairment, hopelessness and suicidal thoughts. The patient is not having suicidal ideation, thoughts or plans now. The patient noted that she took overdose of Prozac in a rage after an argument with her . Current psychiatric History Past Psychiatric History: As stated above. Past Medication History; as stated above. Leading questions: The patient admitted to Depression and Anxiety. Denied SI or HI. Denied symptoms consistent with psychosis Drugs and alcohol history: The patient denied. She used marijuana in the past. Tobacco use: Vapes nicotine. Hospital Course: After admission, the patient was involved in pharmacotherapy, graham milieu, and individual psychodynamic psychotherapy. The patient was started on Prozac, Hydroxyzine and Trazodone. The dose was titrated to obtain the desire effects. The patient tolerated medications well without any side effects. The patient was also involved in graham activities. The patient attended the groups and participated well. The patient interacted with peers and staff well. The patient slowly started showing improvement. The hospital course was uneventful. The patient symptoms of depression, suicidal and homicidal ideations abated. The psychosis improved. The patient maintained close contact with her and the father. The patient and her were in talks about their possible separation and then try marital counseling. As per patient, her was agreeable to this approach. The patient also talked about going to her father, if their marriage falls apart or she needs help of her father to take care of the children. The patients also agreed to this plan. He noted that he will be supportive of the and intends to help raising the kids. The patient was stable to be discharged to out-patient care. The patient did not have any guns or weapons in possession at home. MSE: Alert and attentive. Orientation times three Dressed and Groomed: Appropriately. Pleasant and cooperative. Psychomotor Activity: Normal. Speech: Normal in tone, quality, and quantity. Mood: Depressed and anxious. Affect: Consistent with mood. SI or HI: None. Perceptual disturbance: None. Thought Content: No paranoia or other delusional thinking noted. Thought Process: Normal. Cognition: Intact Judgment and Insight: Poor. AIMS: Normal I Diagnosis: Major depressive Disorder, severe, recurrent. H/O Post- Depression. Plan: The patient to be discharged today. The patient has attained good improvement since admission. He is stable to be followed as an outpatient. The patient is not suicidal or Homicidal. He does not pose any harm to self or others. The patient remains at a greater risk of self-harm or harm to others than general population on a chronic basis due to psychiatric illness and substance abuse. The patient will continue taking following medication post discharge. The importance of medication compliance and maintaining regular appointments at psychiatric out-pt and PCP clinic was explained and encouraged. The patient was also advised to seek alcohol counseling and attend AA/NA meetings. The understood and agreed with the recommendations. vegetable farmworker to arrange for and conduct family meeting to ensure safety upon discharge and answer any questions. The high school social studies teacher to arrange for patients follow-up appointments at [facility] for psychiatric care along with follow-up with PCP. The patient provided psychoeducation. Advised to call 911 or go to nearest ED or call this hospital in case of acute worsening of symptomatology, severe side effects or having suicidal, homicidal thoughts and feeling unsafe at home. Patient Condition at Discharge: Stable Plan - Discharge Summary Discharge Rx Participant: Yes New Discharge Prescriptions: New traZODone HCL [Desyrel] 100 mg PO HS PRN 15 Days #15 tab PRN Reason: Insomnia hydrOXYzine HCL [Atarax] 10 mg PO TID 15 Days #45 tab FLUoxetine HCL [PROzac] 20 mg PO DAILY 15 Days #15 cap Discharge Medication List FLUoxetine HCL [PROzac] 20 mg PO DAILY 15 Days #15 cap 09/14/23 [Rx] hydrOXYzine HCL [Atarax] 10 mg PO TID 15 Days #45 tab 09/14/23 [Rx] traZODone HCL [Desyrel] 100 mg PO HS PRN 15 Days #15 tab 09/14/23 [Rx] Follow up Appointment(s)/Referral(s): [facility] [Outside] - 09/17/23 9:30 am (Intake w [facility] on 09/17/23 0930 am w [facility]) [facility] [NON-STAFF] - 1 Week Patient Instructions/Handouts: Depression (DC) Activity/Diet/Wound Care/Special Instructions: Avoid the use of street drugs and alcohol. Take all medications as prescribed. When you are in need of refills on your medications, please contact your medical provider and/or outpatient psychiatrist/provider to have this done. Please go to your scheduled outpatient appointment for aftercare treatment. If symptoms return or become worse, call the crisis line at and/or go to the nearest emergency room for evaluation. National Suicide Hotline 987 Discharge Disposition: HOME SELF-CARE
== END 2023-09-14 15:20 | disposition home or self-care (01) | DRG 751 ==
LOC: EC 14:38 → 3MHU 09-10 17:34
PROVIDERS: ADMIT Psychiatry & Neurology Psychiatry; ATTEND Psychiatry & Neurology Psychiatry
DX: F33.2 Major depressive disorder, recurrent severe without psychotic features (principal); T43.222A Poisoning by selective serotonin reuptake inhibitors, intentional self-harm, initial encounter; F41.0 Panic disorder [episodic paroxysmal anxiety]; K04.7 Periapical abscess without sinus; J45.909 Unspecified asthma, uncomplicated; K21.9 Gastro-esophageal reflux disease without esophagitis; Z87.891 Personal history of nicotine dependence; Z71.6 Tobacco abuse counseling
CPT/HCPCS: 36415; 80053; 80061; 80076; 80143; 80179; 80306; 81001; 81025; 82075; 83036; 84443; 85025; 86038; 87635; 93005; 99291

== ENCOUNTER 2024-10-21 20:02 | Emergency (ER) | payer OTHER ==
[2024-10-21 20:07] VITALS: BP 108/75; PULSE 109; RESP 18; TEMP 97.5
--- NOTE | 2024-10-21 20:44 | ED ---
Abdominal Pain HPI - General Chief Complaint: Abdominal Pain Stated Complaint: Abd pain,Nausea Time Seen by Provider: 10/21/24 20:34 Source: patient, RN notes reviewed Mode of arrival: ambulatory Limitations: no limitations - History of Present Illness Initial Comments: This is a 29-year-old female who presents to the emergency department for abdominal pain. States that about an hour prior to arrival she developed pain in the suprapubic/right lower quadrant region. States that she was eating when this happened. She has associated nausea but no vomiting. Denies any changes in bowel/bladder habits. Denies any history of similar symptoms in the past. She did have some mild radiation of pain into the back that has since resolved. MD Complaint: abdominal pain - Related Data Previous Rx's Medication Instructions Recorded FLUoxetine HCL [PROzac] 20 mg PO DAILY 15 Days #15 cap 09/14/23 hydrOXYzine HCL [Atarax] 10 mg PO TID 15 Days #45 tab 09/14/23 traZODone HCL [Desyrel] 100 mg PO HS PRN 15 Days #15 tab 09/14/23 Ketorolac [Toradol] 10 mg PO Q6HR PRN #15 tab 10/22/24 Ondansetron Odt [Zofran Odt] 4 mg PO Q8HR PRN #15 tab 10/22/24 Allergies Allergy/AdvReac Type Severity Reaction Status Date / Time No Known Allergies Allergy Verified 10/21/24 20:07 Review of Systems ROS Statement: Those systems with pertinent positive or pertinent negative responses have been documented in the HPI. ROS Other: All systems not noted in ROS Statement are negative. Past Medical History Past Medical History: Asthma Additional Past Medical History / Comment(s): head injury -2013 History of Any Multi-Drug Resistant Organisms: None Reported Past Surgical History: Section Past Anesthesia/Blood Transfusion Reactions: No Reported Reaction Additional Past Anesthesia/Blood Transfusion Reaction / Comment(s): Sister has problem where local anesthetics don't work. Past Psychological History: Anxiety, Bipolar, Depression, Panic Disorder Smoking Status: Vaper Past Alcohol Use History: Occasional Past Drug Use History: Marijuana - Past Family History Mother Family Medical History: GERD/Reflux Father Family Medical History: Hypertension Additional Family Medical History / Comment(s): bipolar General Exam Limitations: no limitations General appearance: alert, in no apparent distress Head exam: Present: atraumatic, normocephalic, normal inspection Respiratory exam: Present: normal lung sounds bilaterally. Absent: respiratory distress, wheezes, rales, rhonchi, stridor Cardiovascular Exam: Present: regular rate, normal rhythm GI/Abdominal exam: Present: soft, tenderness (RLQ), normal bowel sounds. Absent: distended Neurological exam: Present: alert, oriented X3, CN II-XII intact Psychiatric exam: Present: normal affect, normal mood Skin exam: Present: warm, dry, intact, normal color. Absent: rash Course Vital Signs 10/21/24 20:04 Temperature 97.5 F L Pulse Rate 109 H Respiratory 18 Rate Blood Pressure 108/75 O2 Sat by Pulse 100 Oximetry Medical Decision Making - Medical Decision Making This is a 29-year-old female who presents to the emergency department for abdominal pain. Was pt. sent in by a medical professional or institution? @ -No Did you speak to anyone other than the patient for history? @ -No Did you review nursing and triage notes? @ -Yes, and I agree, it is accurate with regards to the patient's symptoms. Were old charts reviewed? @ -No Differential Diagnosis? @ -Differential Abdominal Pain Women: Appendicitis, Cholecystitis, diverticulosis, ischemic bowel, pancreatitis, hepatitis, UTI, gastroenteritis, AAA, incarcerated hernia, bowel obstruction, constipation, inflammatory bowel, hepatitis, peptic ulcer disease, splenic infarction, perforated viscus, vulvitis, ovarian torsion, PID, kidney stone, placenta abruption, this is not meant to be an all-inclusive list EKG interpreted by me (3pts min.)? @ -Not obtained X-rays interpreted by me (1pt min.)? @ -Not obtained CT interpreted by me (1pt min.)? @ -CT scan of the abdomen and pelvis obtained. My interpretation identifies no bowel wall thickening or free air. U/S interpreted by me (1pt. min.)? @ -Transvaginal ultrasound obtained. My interpretation identifies no evidence of an ovarian torsion. What testing was considered but not performed? (CT, X-rays, U/S, labs)? Why? @ -None What meds were considered but not given? Why? @ -None Did you discuss the management of the patient with other professionals? @ -No Did you reconcile home meds? @ -No Was smoking cessation discussed for >3mins.? @ -I discussed smoking cessation for greater than 3 minutes. The risk of smoking were discussed with the patient including but not limited to risks of cancer, stroke, coronary artery disease and COPD. Also discussed with patient were multiple methods of quitting smoking. Lastly we discussed the financial cost of smoking. Was critical care preformed (if so, how long)? @ -No Were there social determinants of health that impacted care today? How? (Homelessness, low income, unemployed, alcoholism, drug addiction, transporta tion, low edu. Level, literacy, decrease access to med. care, skilled nursing, rehab)? @ -No Was there de-escalation of care discussed even if they declined? (Discuss DNR or withdrawal of care, Hospice)? @ -No What co-morbidities impacted this encounter? (DM, HTN, Smoking, COPD, CAD, Cancer, CVA, Hep., AIDS, mental health diagnosis, sleep apnea, morbid obesity)? @ -Smoking Was patient admitted / discharged? @ -Discharged. Lab work unremarkable. Urinalysis negative for signs of infection. We started with a transvaginal ultrasound. They noted a nonspecific tubular structure in the left adnexa that could represent a prominent fallopian tube versus bowel versus other etiologies and they advised a CT scan. However, patient's pain is noted to be on the right side and in the center. Regardless we did proceed with a CT scan of the abdomen and pelvis to evaluate for signs of appendicitis or other abnormalities. The CT scan advised that there was mild wall thickening of the bladder and they advised correlation for a UTI. However, urinalysis was not suggestive of infection. Symptoms were well-controlled in the emergency department. Toradol and Zofran prescribed for further symptomatic management. Advised she also try warm compresses and follow-up with her PCP for reevaluation. Patient discharged home in stable condition. Case discussed with ED attending Dr. Dallas. Return precautions reviewed in depth, the patient is instructed to return to the emergency department with any new, worsening, or concerning symptoms. Patient verbalized understanding. Undiagnosed new problem with uncertain prognosis? @ -None Drug Therapy requiring intensive monitoring for toxicity (Heparin, Nitro, Insulin, Cardizem)? @ -None Were any procedures done? @ -None Diagnosis/symptom? @ -Abdominal pain, nausea and vomiting Acute, or Chronic, or Acute on Chronic? @ -Acute Uncomplicated (without systemic symptoms) or Complicated (systemic symptoms)? @ -Uncomplicated Side effects of treatment? @ -None Exacerbation, Progression, or Severe Exacerbation] @ -Not applicable Poses a threat to life or bodily function? @ -No - Lab Data Result diagrams: 10/21/24 21:42 10/21/24 21:42 Lab Results 10/21/24 10/21/24 10/21/24 Range/Units 21:42 21:42 21:42 WBC 9.32 (4.50-10.00) 10*3/uL RBC 4.35 (4.10-5.20) 10*6/uL Hgb 13.6 (12.0-15.0) g/dL Hct 38.4 (37.2-46.3) % MCV 88.3 (80.0-97.0) fL MCH 31.3 (27.0-32.0) pg MCHC 35.4 (32.0-37.0) g/dL Plt Count 209 (140-440) 10*3/uL MPV 10.9 (9.5-12.2) fL Immature Gran % (Auto) 0.4 % Neutrophils % 71.7 % Lymphocytes % 18.5 % Monocytes % 7.4 % Eosinophils % 1.8 % Basophils % 0.2 % Immature Gran # 0.04 (0.00-0.04) 10*3/uL Neutrophils # 6.68 (1.80-7.70) 10*3/uL Lymphocytes # 1.72 (0.90-5.00) 10*3/uL Monocytes # 0.69 (0.20-1.00) 10*3/uL Eosinophils # 0.17 (0.04-0.35) 10*3/uL Basophils # 0.02 (0.00-0.10) 10*3/uL Sodium 138 (137-145) mmol/L Potassium 4.0 (3.5-5.1) mmol/L Chloride 106 (98-107) mmol/L Carbon Dioxide 25 (22-30) mmol/L Anion Gap 7 mmol/L BUN 18 H (7-17) mg/dL Creatinine 0.65 (0.52-1.04) mg/dL Est GFR (CKD-EPI)AfAm >90 (>60 ml/min/1.73 sqM) Est GFR (CKD-EPI)NonAf >90 (>60 ml/min/1.73 sqM) Glucose 122 H (74-99) mg/dL Plasma Lactic Acid João 1.3 (0.7-2.0) mmol/L Calcium 9.2 (8.4-10.2) mg/dL Total Bilirubin 0.4 (0.2-1.3) mg/dL AST 28 (14-36) U/L ALT 28 (4-34) U/L Alkaline Phosphatase 77 (38-126) U/L Total Protein 6.4 (6.3-8.2) g/dL Albumin 4.0 (3.5-5.0) g/dL HCG, Qual Not Detected Urine Color Urine Appearance (Clear) Urine pH (5.0-8.0) Ur Specific [place] (1.001-1.035) Urine Protein (Negative) Urine Glucose (UA) (Negative) Urine Ketones (Negative) Urine Blood (Negative) Urine Nitrite (Negative) Urine Bilirubin (Negative) Urine Urobilinogen (<2.0) mg/dL Ur Leukocyte Esterase (Negative) Urine HCG, Qual (Not Detectd) 10/21/24 10/21/24 Range/Units 22:33 22:33 WBC (4.50-10.00) 10*3/uL RBC (4.10-5.20) 10*6/uL Hgb (12.0-15.0) g/dL Hct (37.2-46.3) % MCV (80.0-97.0) fL MCH (27.0-32.0) pg MCHC (32.0-37.0) g/dL Plt Count (140-440) 10*3/uL MPV (9.5-12.2) fL Immature Gran % (Auto) % Neutrophils % % Lymphocytes % % Monocytes % % Eosinophils % % Basophils % % Immature Gran # (0.00-0.04) 10*3/uL Neutrophils # (1.80-7.70) 10*3/uL Lymphocytes # (0.90-5.00) 10*3/uL Monocytes # (0.20-1.00) 10*3/uL Eosinophils # (0.04-0.35) 10*3/uL Basophils # (0.00-0.10) 10*3/uL Sodium (137-145) mmol/L Potassium (3.5-5.1) mmol/L Chloride (98-107) mmol/L Carbon Dioxide (22-30) mmol/L Anion Gap mmol/L BUN (7-17) mg/dL Creatinine (0.52-1.04) mg/dL Est GFR (CKD-EPI)AfAm (>60 ml/min/1.73 sqM) Est GFR (CKD-EPI)NonAf (>60 ml/min/1.73 sqM) Glucose (74-99) mg/dL Plasma Lactic Acid João (0.7-2.0) mmol/L Calcium (8.4-10.2) mg/dL Total Bilirubin (0.2-1.3) mg/dL AST (14-36) U/L ALT (4-34) U/L Alkaline Phosphatase (38-126) U/L Total Protein (6.3-8.2) g/dL Albumin (3.5-5.0) g/dL HCG, Qual Urine Color Colorless Urine Appearance Clear (Clear) Urine pH 6.5 (5.0-8.0) Ur Specific [place] 1.023 (1.001-1.035) Urine Protein Negative (Negative) Urine Glucose (UA) Negative (Negative) Urine Ketones Negative (Negative) Urine Blood Negative (Negative) Urine Nitrite Negative (Negative) Urine Bilirubin Negative (Negative) Urine Urobilinogen <2.0 (<2.0) mg/dL Ur Leukocyte Esterase Negative (Negative) Urine HCG, Qual Not Detected (Not Detectd) - Radiology Data Radiology results: report reviewed, image reviewed Disposition Clinical Impression: Abdominal pain, Nausea and vomiting, Nicotine dependence Disposition: HOME SELF-CARE Instructions (If sedation given, give patient instructions): Pelvic Pain in Women (ED), Abdominal Pain (ED), Ruptured Ovarian Cyst (ED) Additional Instructions: Return to the emergency department with any new, worsening, or concerning symptoms. Take the Toradol with Tylenol as needed for pain relief. If you choose to take the Toradol, do not take any other anti-inflammatories such as ibuprofen, take one or the other. Take the Zofran up to every 8 hours as needed for nausea and vomiting. You can also apply warm compresses. Follow up with your primary care provider in 1-2 days. Prescriptions: Ketorolac [Toradol] 10 mg PO Q6HR PRN #15 tab PRN Reason: Pain Ondansetron Odt [Zofran Odt] 4 mg PO Q8HR PRN #15 tab PRN Reason: Nausea And Vomiting Is patient prescribed a controlled substance at d/c from ED?: No Referrals: None,Stated [Primary Care Provider] - 1-2 days Time of Disposition: 00:24
--- NOTE | 2024-10-21 21:26 | US ---
EXAMINATION TYPE: US pelvis complete transvag DATE OF EXAM: 10/21/2024 COMPARISON: US 2016 CLINICAL INDICATION: Female, 29 years old with history of Pelvic pain; pt states pelvic pain. hx c se ct , TECHNIQUE: Transvaginal (TV) and Transabdominal (TA) . Transabdominal grayscale sonographic images of the pelvis were acquired. Transvaginal sonographic im ages were medically necessary to better assess the following anatomy: Ovaries Doppler imaging: Color Doppler Images were obtained. Spectral doppler images were obtained. FINDINGS: Date of LMP: 10/02/2024 EXAM MEASUREMENTS: Uterus: 10.6 x 5.4 x 6.7 cm Endometrial Stripe: 1.0 cm Right Ovary: 2.5 x 1.9 x 2.3 cm Left Ovary: 3.67 x 1.6 x 2.6 cm 1. Uterus: Anteverted wnl 2. Endometrium: wnl 3. Right Ovary: wnl 4. Left Ovary: wnl Spectral, color and waveform doppler imaging shows good arterial and venous flow within the ovaries ; there is no evidence for ovarian torsion. 5. Bilateral Adnexa: there is a 5.1 x 1 .3 x 5.5cm hypoechoic, tubular area seen in the left adnexa seen better transabdominally 6. Posterior cul-de-sac: ff seen Anteverted uterus without focal lesion. scarring demonstrated. Endometrium is within normal limits. Both ovaries appear unremarkable without evidence for torsion. Tubular structure within the left adnexa measuring 5.1 x 1.3 x 5.5 cm. Simple appearing free fluid seen within the posterior cul-d e-sac. IMPRESSION: 1. No ultrasound evidence for acute pelvic process. 2. No evidence for ovarian torsion. 3. Nonspecific tubular structure within the left adnexa. Could represent prominent fallopian tube joi trista bowel versus other etiologies. Consider further evaluation with CT pelvis with IV and oral contra [facility], , 10/21/2024 9:24 PM
[2024-10-21] MEDS: SODIUM CHLORIDE 0.9% 1,000 ML IV ONE (21:38)
[2024-10-21] MEDS: KETOROLAC 15 MG/ML 1 ML VIAL IVP STA ×2 (21:39→23:06)
[2024-10-21] MEDS: MORPHINE SULFATE 4 MG/ML SYRINGE IVP STA (21:40)
[2024-10-21] MEDS: ONDANSETRON 4 MG/2 ML VIAL IVP STA (21:40)
[2024-10-21 21:54] LABS: Basophils # (A) 0.02 10*3/uL (0.00-0.10); Basophils % (A) 0.2 %; Eosinophils # (A) 0.17 10*3/uL (0.04-0.35); Eosinophils % (A) 1.8 %; HCT 38.4 % (37.2-46.3); HGB 13.6 g/dL (12.0-15.0); Lymphocytes # (A) 1.72 10*3/uL (0.90-5.00); Lymphocytes % (A) 18.5 %; MCH 31.3 pg (27.0-32.0); MCHC 35.4 g/dL (32.0-37.0); MCV 88.3 fL (80.0-97.0); Monocytes # (A) 0.69 10*3/uL (0.20-1.00); Monocytes % (A) 7.4 %; Neutrophils # (A) 6.68 10*3/uL (1.80-7.70); Neutrophils % (A) 71.7 %; Platelet Count 209 10*3/uL (140-440); RBC 4.35 10*6/uL (4.10-5.20); RDW 12.4 % (11.5-14.5); WBC 9.32 10*3/uL (4.50-10.00)
[2024-10-21 22:16] LABS: ALT 28 U/L (4-34); AST 28 U/L (14-36); African American GFR (CKD) >90 (>60 ml/min/1.73 sqM); Albumin 4.0 g/dL (3.5-5.0); Alkaline Phosphatase 77 U/L (38-126); Anion Gap 7 mmol/L; Blood Urea Nitrogen 18 mg/dL (7-17); Calcium 9.2 mg/dL (8.4-10.2); Carbon Dioxide 25 mmol/L (22-30); Chloride 106 mmol/L (98-107); Glucose 122 mg/dL (74-99); Non-African American GFR(CKD) >90 (>60 ml/min/1.73 sqM); Potassium 4.0 mmol/L (3.5-5.1); Sodium 138 mmol/L (137-145); Total Protein 6.4 g/dL (6.3-8.2)
[2024-10-21 22:22] LABS: HCG,Qualitative Serum Not Detected
[2024-10-21 22:50] LABS: Bilirubin,Urine Negative (Negative); Blood,Urine Negative (Negative); Color,Urine Colorless; Glucose,Urine (UA) Negative (Negative); Ketones,Urine Negative (Negative); Leukocyte Esterase,Urine Negative (Negative); Nitrite,Urine Negative (Negative); PH, Urine 6.5 (5.0-8.0); Protein,Urine Negative (Negative); Specific Gravity,Urine 1.023 (1.001-1.035); Urobilinogen,Urine <2.0 mg/dL (<2.0)
[2024-10-21] MEDS: MORPHINE SULFATE 2 MG/ML SYRINGE IVP STA (23:06)
[2024-10-21] MEDS: ACETAMINOPHEN TAB 500 MG TAB PO STA (23:06)
--- NOTE | 2024-10-22 00:12 | CT ---
EXAM: CT Abdomen and Pelvis With Intravenous Contrast CLINICAL HISTORY: ITS.REASON CT Reason: Suprapubic and right sided abdominal pain TECHNIQUE: Axial computed tomography images of the abdomen and pelvis with intravenous contrast. CTDI is 21.8 mGy and DLP is 1031 mGy-cm. This CT exam was performed using one or more of the following dose reduction techniques: automated exposure control, adjustment of the mA and/or kV according to patient size, and/or use of iterative reconstruction technique. COMPARISON: No relevant prior studies available. FINDINGS: Lung bases: Unremarkable. No mass. No consolidation. ABDOMEN: Liver: Unremarkable. No mass. Gallbladder and bile ducts: Unremarkable. No calcified stones. No ductal dilation. Pancreas: Unremarkable. No mass. No ductal dilation. Spleen: Unremarkable. No splenomegaly. Adrenals: Unremarkable. No mass. Kidneys and ureters: Unremarkable. No solid mass. No hydronephrosis. Stomach and bowel: Unremarkable. No obstruction. No mucosal thickening. PELVIS: Appendix: No findings to suggest acute appendicitis. Bladder: Mild wall thickening of the urinary bladder, correlate for UTI. Reproductive: Unremarkable as visualized. ABDOMEN and PELVIS: Intraperitoneal space: Mild-moderate free fluid in the pelvis. No free air. Bones/joints: No acute fracture. No dislocation. Soft tissues: Unremarkable. Vasculature: Unremarkable. No abdominal aortic aneurysm. Lymph nodes: Unremarkable. No enlarged lymph nodes. IMPRESSION: Mild wall thickening of the urinary bladder, correlate for UTI.
[2024-10-22] MEDS: ONDANSETRON 4 MG ODT STARTER PACK 2 TAB BTL PO STA (00:38)
[2024-10-22] MEDS: ACET/COD 300 MG/30 MG STARTER PACK 6 TAB BTL PO STA (00:39)
== END 2024-10-22 00:46 | disposition home or self-care (01) ==
LOC: EC 20:02
DX: R10.31 Right lower quadrant pain (principal); R11.2 Nausea with vomiting, unspecified; F17.290 Nicotine dependence, other tobacco product, uncomplicated
CPT/HCPCS: 36415; 80053; 83605; 85025; 81003; 81025; 84703; 93975; 76856; 76830; 74177; 99284; 96374; 96375 ×2; 96376; 96361 ×2; J2405; J2270; J1885; Q9967